=== PATIENT | female | born 1970 | race Caucasian/White ===

== ENCOUNTER 2022-01-27 07:36 | Emergency (ER) | payer OTHER ==
[2022-01-27 07:43] VITALS: RESP 18
[2022-01-27] MEDS ORDERED: SODIUM CHLORIDE 0.9% 500 ML 500 ML IV ONE (08:00)
[2022-01-27] MEDS ORDERED: MORPHINE SULFATE 4 MG/ML SYRINGE IVP STA (08:02)
[2022-01-27] MEDS ORDERED: ORPHENADRINE 30 MG/ML 2 ML VIAL IVP STA (08:03)
[2022-01-27] MEDS ORDERED: ONDANSETRON 4 MG/2 ML VIAL IVP STA (08:04)
--- NOTE | 2022-01-27 08:24 | ED ---
Back Pain HPI - General Chief Complaint: Back Pain/Injury Stated Complaint: Back pain Time Seen by Provider: 01/27/22 07:38 Source: patient Mode of arrival: ambulatory Limitations: no limitations - History of Present Illness Initial Comments: Patient is a 51-year-old female with PMH of asthma and hypertension presenting with back pain. Pain has been going on for 2-3 days, located in the left lumbar area, and feels like a pulling sensation. It occurred after she was reaching and hyper-extending. Pain is worse when changing position from sitting to standing. She has been using heat at home and tried one of her son's muscle relaxers last night which helped alleviate the pain enough for her to sleep. Denies chest pain, shortness of breath, palpitations, dysuria, hematuria, abdominal pain, fever, chills, nausea, vomiting. MD Complaint: back pain - Related Data Previous Rx's Medication Instructions Recorded Cyclobenzaprine HCl 10 mg PO TID PRN #20 tab 01/27/22 Allergies Allergy/AdvReac Type Severity Reaction Status Date / Time cheese Allergy Unknown Verified 01/27/22 07:44 melon Allergy Unknown Verified 01/27/22 07:44 shellfish derived [Shrimp] Allergy Unknown Verified 01/27/22 07:44 tree nut Allergy Unknown Verified 01/27/22 07:44 wheat Allergy Unknown Verified 01/27/22 07:44 Review of Systems ROS Statement: Those systems with pertinent positive or pertinent negative responses have been documented in the HPI. ROS Other: All systems not noted in ROS Statement are negative. Past Medical History Past Medical History: Asthma, Hypertension History of Any Multi-Drug Resistant Organisms: None Reported Past Surgical History: Section Past Psychological History: No Psychological Hx Reported Smoking Status: Never smoker Past Alcohol Use History: None Reported Past Drug Use History: None Reported General Exam Limitations: no limitations General appearance: alert, in no apparent distress Head exam: Present: atraumatic, normocephalic, normal inspection Eye exam: Present: normal appearance, PERRL, EOMI. Absent: scleral icterus Neck exam: Present: normal inspection Cardiovascular Exam: Present: normal rhythm, tachycardia, normal heart sounds. Absent: systolic murmur, diastolic murmur, rubs, gallop, clicks GI/Abdominal exam: Present: soft. Absent: tenderness Extremities exam: Present: normal inspection, full ROM. Absent: tenderness Back exam: Present: normal inspection, full ROM (pain with ROM), muscle spasm. Absent: CVA tenderness (R), CVA tenderness (L) Expanded Back exam: Absent: saddle anesthesia Neurological exam: Present: alert, oriented X3, CN II-XII intact Psychiatric exam: Present: normal affect, normal mood Skin exam: Present: warm, dry, intact, normal color. Absent: rash Course Vital Signs 01/27/22 01/27/22 01/27/22 07:38 08:15 08:43 Temperature 97.9 F Pulse Rate 128 H 118 H 112 H Respiratory 18 18 Rate Blood Pressure 168/107 176/98 O2 Sat by Pulse 96 98 Oximetry - Reevaluation(s) Reevaluation #1: She reports improvement in pain. 01/27/22 10:00 Medical Decision Making - Medical Decision Making Patient is a 51-year-old female with a PMH of asthma and hypertension presenting with left lower back pain. Pain started a few days ago after she strained to hard when reaching for something. At presentation heart rate was 128 she was slightly hypertensive. Pain is provoked with range of motion. No saddle paresthesia, loss of bowel or bladder control, leg weakness or numbness. While presentation is likely consistent with mechanical back pain - nephrolithiasis, intraabdominal infection, ACS were certainly within the differential. EKG was remarkable for tachycardia, otherwise normal and evaluated by Dr. Quintanilla. Lab work was negative. X-ray of lumbar spine and one view chest x-ray were negative. Presentation consistent with mechanical back pain and lumbar strain. Advised follow-up with a PCP in one to 3 days, provided her with 2 referrals as options. Educated on untreated hypertension. Prescribed cyclobenzaprine 10 mg up to 3 times a day as needed for back pain, may cause drowsiness do not take before driving or operating heavy machinery. Apply heat as needed. Report back to ER with any worsening symptoms or new onset alarming symptoms such as chest pain, shortness of breath, abdominal pain, fever, chills, saddle paresthesia, loss of bowel or bladder control, leg numbness or weakness. Answered all questions. Patient conveyed verbal understanding and agreed to the plan. Dr. Vazquez was the attending - Lab Data Result diagrams: 01/27/22 08:25 01/27/22 09:00 Lab Results 01/27/22 01/27/22 01/27/22 Range/Units 08:25 08:25 09:00 WBC 12.0 H (3.8-10.6) k/uL RBC 4.91 (3.80-5.40) m/uL Hgb 14.7 (11.4-16.0) gm/dL Hct 45.1 (34.0-46.0) % MCV 92.0 (80.0-100.0) fL MCH 29.9 (25.0-35.0) pg MCHC 32.5 (31.0-37.0) g/dL RDW 14.1 (11.5-15.5) % Plt Count 350 (150-450) k/uL MPV 8.0 Neutrophils % 80 % Lymphocytes % 14 % Monocytes % 4 % Eosinophils % 1 % Basophils % 1 % Neutrophils # 9.5 H (1.3-7.7) k/uL Lymphocytes # 1.7 (1.0-4.8) k/uL Monocytes # 0.4 (0-1.0) k/uL Eosinophils # 0.1 (0-0.7) k/uL Basophils # 0.1 (0-0.2) k/uL ESR Cancelled Sodium 139 (137-145) mmol/L Potassium 4.1 (3.5-5.1) mmol/L Chloride 105 (98-107) mmol/L Carbon Dioxide 22 (22-30) mmol/L Anion Gap 12 mmol/L BUN 10 (7-17) mg/dL Creatinine 0.71 (0.52-1.04) mg/dL Est GFR (CKD-EPI)AfAm >90 (>60 ml/min/1.73 sqM) Est GFR (CKD-EPI)NonAf >90 (>60 ml/min/1.73 sqM) Glucose 101 H (74-99) mg/dL Plasma Lactic Acid Andriy (0.7-2.0) mmol/L Calcium 9.2 (8.4-10.2) mg/dL Total Bilirubin 1.1 (0.2-1.3) mg/dL AST 33 (14-36) U/L ALT 27 (4-34) U/L Alkaline Phosphatase 158 H (38-126) U/L Troponin I (0.000-0.034) ng/mL C-Reactive Protein 0.7 (<1.0) mg/dL Total Protein 8.3 H (6.3-8.2) g/dL Albumin 4.4 (3.5-5.0) g/dL Urine Color Light Yellow Urine Appearance Cloudy H (Clear) Urine pH 6.5 (5.0-8.0) Ur Specific [place] 1.005 (1.001-1.035) Urine Protein Negative (Negative) Urine Glucose (UA) Negative (Negative) Urine Ketones Negative (Negative) Urine Blood Small H (Negative) Urine Nitrite Negative (Negative) Urine Bilirubin Negative (Negative) Urine Urobilinogen <2.0 (<2.0) mg/dL Ur Leukocyte Esterase Negative (Negative) Urine RBC 4 (0-5) /hpf Urine WBC 8 H (0-5) /hpf Ur Squamous Epith Cells 7 H (0-4) /hpf Urine Bacteria Many H (None) /hpf Urine Mucus Rare H (None) /hpf 01/27/22 01/27/22 01/27/22 Range/Units 09:00 09:00 09:00 WBC (3.8-10.6) k/uL RBC (3.80-5.40) m/uL Hgb (11.4-16.0) gm/dL Hct (34.0-46.0) % MCV (80.0-100.0) fL MCH (25.0-35.0) pg MCHC (31.0-37.0) g/dL RDW (11.5-15.5) % Plt Count (150-450) k/uL MPV Neutrophils % % Lymphocytes % % Monocytes % % Eosinophils % % Basophils % % Neutrophils # (1.3-7.7) k/uL Lymphocytes # (1.0-4.8) k/uL Monocytes # (0-1.0) k/uL Eosinophils # (0-0.7) k/uL Basophils # (0-0.2) k/uL ESR 28 H Sodium (137-145) mmol/L Potassium (3.5-5.1) mmol/L Chloride (98-107) mmol/L Carbon Dioxide (22-30) mmol/L Anion Gap mmol/L BUN (7-17) mg/dL Creatinine (0.52-1.04) mg/dL Est GFR (CKD-EPI)AfAm (>60 ml/min/1.73 sqM) Est GFR (CKD-EPI)NonAf (>60 ml/min/1.73 sqM) Glucose (74-99) mg/dL Plasma Lactic Acid Andriy 1.7 (0.7-2.0) mmol/L Calcium (8.4-10.2) mg/dL Total Bilirubin (0.2-1.3) mg/dL AST (14-36) U/L ALT (4-34) U/L Alkaline Phosphatase (38-126) U/L Troponin I <0.012 (0.000-0.034) ng/mL C-Reactive Protein (<1.0) mg/dL Total Protein (6.3-8.2) g/dL Albumin (3.5-5.0) g/dL Urine Color Urine Appearance (Clear) Urine pH (5.0-8.0) Ur Specific [place] (1.001-1.035) Urine Protein (Negative) Urine Glucose (UA) (Negative) Urine Ketones (Negative) Urine Blood (Negative) Urine Nitrite (Negative) Urine Bilirubin (Negative) Urine Urobilinogen (<2.0) mg/dL Ur Leukocyte Esterase (Negative) Urine RBC (0-5) /hpf Urine WBC (0-5) /hpf Ur Squamous Epith Cells (0-4) /hpf Urine Bacteria (None) /hpf Urine Mucus (None) /hpf - EKG Data EKG shows normal: axis, intervals Rate: tachycardia EKG Comments: Interpreted by Dr. Vazquez When compared to previous EKG there are: previous EKG unavailable - Radiology Data Radiology results: report reviewed Chest x-ray: No acute processes Lumbar x-ray: No acute fracture or dislocation. Disposition Clinical Impression: Mechanical back pain, Strain of lumbar region Disposition: HOME SELF-CARE Condition: Good Instructions (If sedation given, give patient instructions): Acute Low Back Pain (ED) Additional Instructions: Follow-up with one of the primary care physicians provided in the next 1-3 days. Report back to ER with any worsening symptoms or new onset alarming symptoms such as leg weakness or numbness, loss of bowel or bladder control, numbness or tingling in the genital region, chest pain, shortness of breath Prescriptions: Cyclobenzaprine HCl 10 mg PO TID PRN #20 tab PRN Reason: Spasms Is patient prescribed a controlled substance at d/c from ED?: No Referrals: Que Hatfield MD [REFERRING] - 1-2 days Vinh Mensah MD [REFERRING] - 1-2 days Time of Disposition: 10:04
[2022-01-27] MEDS ORDERED: KETOROLAC 15 MG/ML 1 ML VIAL IVP STA (08:25)
[2022-01-27 08:40] LABS: Basophils # (A) 0.1 k/uL (0-0.2); Basophils % (A) 1 %; Eosinophils # (A) 0.1 k/uL (0-0.7); Eosinophils % (A) 1 %; HCT 45.1 % (34.0-46.0); HGB 14.7 gm/dL (11.4-16.0); Lymphocytes # (A) 1.7 k/uL (1.0-4.8); Lymphocytes % (A) 14 %; MCH 29.9 pg (25.0-35.0); MCHC 32.5 g/dL (31.0-37.0); Monocytes # (A) 0.4 k/uL (0-1.0); Monocytes % (A) 4 %; Neutrophils # (A) 9.5 k/uL (1.3-7.7); Neutrophils % (A) 80 %; Platelet Count 350 k/uL (150-450); RBC 4.91 m/uL (3.80-5.40); RDW 14.1 % (11.5-15.5)
--- NOTE | 2022-01-27 08:51 | XR ---
EXAMINATION TYPE: XR chest 1V DATE OF EXAM: 01/27/2022 COMPARISON: NONE HISTORY: Back pain TECHNIQUE: Single frontal view of the chest is obtained. FINDINGS: There is no focal air space opacity, pleural effusion, or pneumothorax seen. The cardiac silhouette size is within normal limits. There is elevation of right hemidiaphragm, eventration. The osseous structures are intact. IMPRESSION: No acute process.
--- NOTE | 2022-01-27 08:53 | XR ---
Lumbar spine HISTORY: Back pain 3 views of the lumbar spine Lumbar vertebral bodies show preserved height, alignment, and bone mineralization. Spina bifida occul ta is present at what is believed to be S1, possible transitional vertebral body. There is multilevel spondylosis. Some loss of disc height at intervertebral level L2-3. Sclerosis is present in the post erior elements of the lower lumbar spine. IMPRESSION: Degenerative disc disease and facet arthropathy.
[2022-01-27 09:19] LABS: ALT 27 U/L (4-34); AST 33 U/L (14-36); African American GFR (CKD) >90 (>60 ml/min/1.73 sqM); Albumin 4.4 g/dL (3.5-5.0); Alkaline Phosphatase 158 U/L (38-126); Anion Gap 12 mmol/L; Blood Urea Nitrogen 10 mg/dL (7-17); C Reactive Protein 0.7 mg/dL (<1.0); Calcium 9.2 mg/dL (8.4-10.2); Carbon Dioxide 22 mmol/L (22-30); Chloride 105 mmol/L (98-107); Glucose 101 mg/dL (74-99); Non-African American GFR(CKD) >90 (>60 ml/min/1.73 sqM); Potassium 4.1 mmol/L (3.5-5.1); Sodium 139 mmol/L (137-145); Total Bilirubin 1.1 mg/dL (0.2-1.3); Total Protein 8.3 g/dL (6.3-8.2)
[2022-01-27 09:53] LABS: Appearance,Urine Cloudy (Clear); Bacteria,Urine Many /hpf; Bilirubin,Urine Negative (Negative); Blood,Urine Small (Negative); Color,Urine Light Yellow; Glucose,Urine (UA) Negative (Negative); Ketones,Urine Negative (Negative); Leukocyte Esterase,Urine Negative (Negative); Mucus,Urine Rare /hpf; Nitrite,Urine Negative (Negative); PH, Urine 6.5 (5.0-8.0); Protein,Urine Negative (Negative); RBC,Urine 4 /hpf (0-5); Specific Gravity,Urine 1.005 (1.001-1.035); Squamous Epithelial Cell,Urine 7 /hpf (0-4); Urobilinogen,Urine <2.0 mg/dL (<2.0); WBC,Urine 8 /hpf (0-5)
[2022-01-27 10:26] VITALS: BP 177/93; PULSE 108; TEMP 97.8
== END 2022-01-27 10:24 | disposition home or self-care (01) ==
LOC: EC 07:36
DX: S39.012A Strain of muscle, fascia and tendon of lower back, initial encounter (principal); I10 Essential (primary) hypertension; J45.909 Unspecified asthma, uncomplicated; Z79.899 Other long term (current) drug therapy; X50.1XXA Overexertion from prolonged static or awkward postures, initial encounter
CPT/HCPCS: 36415; 93005; 80053; 85652; 83605; 84484; 85025; 86140; 81001; 72100; 71045; 99284; 96374; 96375 ×2; J2360; J2405; J1885

== ENCOUNTER 2022-03-27 22:19 | Emergency (ER) | payer OTHER ==
[2022-03-27 23:21] VITALS: RESP 18
[2022-03-27] MEDS ORDERED: ACETAMINOPHEN TAB 325 MG TAB PO STA (23:26)
[2022-03-28 02:20] LABS: Basophils # (A) 0.1 k/uL (0-0.2); Basophils % (A) 1 %; Eosinophils # (A) 0.2 k/uL (0-0.7); Eosinophils % (A) 2 %; HCT 44.4 % (34.0-46.0); HGB 14.1 gm/dL (11.4-16.0); Lymphocytes # (A) 1.4 k/uL (1.0-4.8); Lymphocytes % (A) 9 %; MCHC 31.7 g/dL (31.0-37.0); MCV 91.7 fL (80.0-100.0); Mean Platelet Volume 7.9; Monocytes # (A) 0.6 k/uL (0-1.0); Monocytes % (A) 4 %; Neutrophils # (A) 13.9 k/uL (1.3-7.7); Neutrophils % (A) 85 %; Platelet Count 389 k/uL (150-450); RBC 4.84 m/uL (3.80-5.40); WBC 16.4 k/uL (3.8-10.6)
--- NOTE | 2022-03-28 02:23 | XR ---
EXAMINATION TYPE: XR chest 2V DATE OF EXAM: 03/28/2022 COMPARISON: 01/27/2022 HISTORY: Cough TECHNIQUE: 2 views FINDINGS: Heart and mediastinum are normal. Lungs are clear. Diaphragm is normal. Bony thorax is inta ct. IMPRESSION: Normal chest. No change.
[2022-03-28 02:27] LABS: Prothrombin Time 10.9 sec (9.0-12.0)
[2022-03-28 02:33] VITALS: TEMP 99.8
[2022-03-28 02:46] LABS: ALT 19 U/L (4-34); African American GFR (CKD) >90 (>60 ml/min/1.73 sqM); Albumin 4.5 g/dL (3.5-5.0); Anion Gap 9 mmol/L; Blood Urea Nitrogen 13 mg/dL (7-17); Calcium 9.9 mg/dL (8.4-10.2); Carbon Dioxide 25 mmol/L (22-30); Chloride 103 mmol/L (98-107); Glucose 118 mg/dL (74-99); Non-African American GFR(CKD) >90 (>60 ml/min/1.73 sqM); Sodium 137 mmol/L (137-145); Total Bilirubin 1.3 mg/dL (0.2-1.3); Total Protein 8.5 g/dL (6.3-8.2)
[2022-03-28 02:57] LABS: Potassium 4.3 mmol/L (3.5-5.1)
[2022-03-28 02:58] LABS: AST 29 U/L (14-36); Alkaline Phosphatase 154 U/L (38-126)
--- NOTE | 2022-03-28 03:15 | ED ---
General Adult HPI - General Chief complaint: ENT Stated complaint: ENT Time Seen by Provider: 03/28/22 02:09 Source: patient Mode of arrival: ambulatory Limitations: no limitations - History of Present Illness Initial comments: Melisa is a 51yo F with PMH of htn who is no longer taking any medications. Patient presents to the emergency department today via private vehicle for evaluation of 2 days of sore throat, nasal congestion and pressure in the ears. Patient states she is really anxious she could've COVID-19. She's had no nausea or vomiting. She has no chest pain, palpitations or shortness of breath. - Related Data Previous Rx's Medication Instructions Recorded Cyclobenzaprine HCl 10 mg PO TID PRN #20 tab 01/27/22 Lisinopril [Zestril] 10 mg PO DAILY #30 tab 03/28/22 Allergies Allergy/AdvReac Type Severity Reaction Status Date / Time cheese Allergy Unknown Verified 03/27/22 23:21 melon Allergy Unknown Verified 03/27/22 23:21 shellfish derived [Shrimp] Allergy Unknown Verified 03/27/22 23:21 tree nut Allergy Unknown Verified 03/27/22 23:21 wheat Allergy Unknown Verified 03/27/22 23:21 Review of Systems ROS Statement: Those systems with pertinent positive or pertinent negative responses have been documented in the HPI. ROS Other: All systems not noted in ROS Statement are negative. Past Medical History Past Medical History: Asthma, Hypertension History of Any Multi-Drug Resistant Organisms: None Reported Past Surgical History: Section Past Psychological History: No Psychological Hx Reported Smoking Status: Never smoker Past Alcohol Use History: None Reported Past Drug Use History: None Reported General Exam - General Exam Comments Initial Comments: Physical Exam GENERAL: Patient is well-developed and well-nourished. Patient is nontoxic and well- hydrated and is in no distress. HENT: Normocephalic, Atraumatic. TMs normal bilaterally [place] moist oral pharynx with no erythema or exudates EYES: PERRL, EOMI PULMONARY: Unlabored respirations. No audible rales rhonchi or wheezing was noted. CARDIOVASCULAR: There is a regular rate and rhythm without any murmurs gallops or rubs. ABDOMEN: Soft and nontender with normal bowel sounds. SKIN: Skin is clear with no lesions or rashes and otherwise unremarkable. : Deferred NEUROLOGIC: Patient is alert and oriented x3. Moving all extremities spontaneously MUSCULOSKELETAL: Normal extremities with adequate strength and full range of motion. No lower extremity swelling or edema. No calf tenderness. PSYCHIATRIC: Normal psychiatric evaluation. Limitations: no limitations Course Vital Signs 03/27/22 03/28/22 03/28/22 23:15 01:19 02:30 Temperature 100.4 F H 98.5 F 99.8 F H Pulse Rate 130 H 134 H 121 H Respiratory 18 18 18 Rate Blood Pressure 193/100 199/103 196/101 O2 Sat by Pulse 98 96 Oximetry 03/28/22 03/28/22 03/28/22 04:02 04:18 05:00 Temperature Pulse Rate 116 H 98 99 Respiratory 18 18 18 Rate Blood Pressure 170/105 183/98 192/102 O2 Sat by Pulse 96 94 L 95 Oximetry EKG Findings - EKG Comments: EKG Findings:: EKG was obtained due to tachycardia, EKG was obtained at 1:50 AM, rate is 126 rhythm is sinus tach, normal axis, normal intervals, CA 157, QRS 83, QTC [address] elevations or depressions or evidence of ischemia or infarction. Medical Decision Making - Medical Decision Making pt was seen and evaluated, labs and swabs were obtained Patient was tachycardic and hypertensive and febrile, swabs were negative for COVID her fluid and patient was relieved. She was treated with a single dose of metoprolol she had brief improvement in her blood pressure and heart rate. She received IV fluids her heart rate improved significantly. Patient then called for me to come back to her room she stated that she did not want to stay for any further medications that she is asymptomatic as far as her hypertension is concerning. I did prescribe her lisinopril and advised her that she needs to see it, I did discuss with the patient that she is at a high risk of having a stroke or PA due to her uncontrolled hypertension. Patient expressed understanding this was comfortable plan for discharge home, outpatient follow-up with primary care and lisinopril for hypertension. - Lab Data Result diagrams: 03/28/22 02:01 03/28/22 02:01 Lab Results 03/27/22 03/27/22 03/28/22 Range/Units 23:27 23:27 02:01 WBC 16.4 H (3.8-10.6) k/uL RBC 4.84 (3.80-5.40) m/uL Hgb 14.1 (11.4-16.0) gm/dL Hct 44.4 (34.0-46.0) % MCV 91.7 (80.0-100.0) fL MCH 29.0 (25.0-35.0) pg MCHC 31.7 (31.0-37.0) g/dL RDW 14.0 (11.5-15.5) % Plt Count 389 (150-450) k/uL MPV 7.9 Neutrophils % 85 % Lymphocytes % 9 % Monocytes % 4 % Eosinophils % 2 % Basophils % 1 % Neutrophils # 13.9 H (1.3-7.7) k/uL Lymphocytes # 1.4 (1.0-4.8) k/uL Monocytes # 0.6 (0-1.0) k/uL Eosinophils # 0.2 (0-0.7) k/uL Basophils # 0.1 (0-0.2) k/uL PT (9.0-12.0) sec INR (<1.2) Sodium (137-145) mmol/L Potassium (3.5-5.1) mmol/L Chloride (98-107) mmol/L Carbon Dioxide (22-30) mmol/L Anion Gap mmol/L BUN (7-17) mg/dL Creatinine (0.52-1.04) mg/dL Est GFR (CKD-EPI)AfAm (>60 ml/min/1.73 sqM) Est GFR (CKD-EPI)NonAf (>60 ml/min/1.73 sqM) Glucose (74-99) mg/dL Calcium (8.4-10.2) mg/dL Total Bilirubin (0.2-1.3) mg/dL AST (14-36) U/L ALT (4-34) U/L Alkaline Phosphatase (38-126) U/L Troponin I (0.000-0.034) ng/mL Total Protein (6.3-8.2) g/dL Albumin (3.5-5.0) g/dL Coronavirus (PCR) Not Detected (Not Detectd) Influenza Type A RNA Not Detected (Not Detectd) Influenza Type B (PCR) Not Detected (Not Detectd) 04/28/22 04/28/22 04/28/22 Range/Units 02:01 02:01 02:01 WBC (3.8-10.6) k/uL RBC (3.80-5.40) m/uL Hgb (11.4-16.0) gm/dL Hct (34.0-46.0) % MCV (80.0-100.0) fL MCH (25.0-35.0) pg MCHC (31.0-37.0) g/dL RDW (11.5-15.5) % Plt Count (150-450) k/uL MPV Neutrophils % % Lymphocytes % % Monocytes % % Eosinophils % % Basophils % % Neutrophils # (1.3-7.7) k/uL Lymphocytes # (1.0-4.8) k/uL Monocytes # (0-1.0) k/uL Eosinophils # (0-0.7) k/uL Basophils # (0-0.2) k/uL PT 10.9 (9.0-12.0) sec INR 1.0 (<1.2) Sodium 137 (137-145) mmol/L Potassium 4.3 (3.5-5.1) mmol/L Chloride 103 (98-107) mmol/L Carbon Dioxide 25 (22-30) mmol/L Anion Gap 9 mmol/L BUN 13 (7-17) mg/dL Creatinine 0.65 (0.52-1.04) mg/dL Est GFR (CKD-EPI)AfAm >90 (>60 ml/min/1.73 sqM) Est GFR (CKD-EPI)NonAf >90 (>60 ml/min/1.73 sqM) Glucose 118 H (74-99) mg/dL Calcium 9.9 (8.4-10.2) mg/dL Total Bilirubin 1.3 (0.2-1.3) mg/dL AST 29 (14-36) U/L ALT 19 (4-34) U/L Alkaline Phosphatase 154 H (38-126) U/L Troponin I <0.012 (0.000-0.034) ng/mL Total Protein 8.5 H (6.3-8.2) g/dL Albumin 4.5 (3.5-5.0) g/dL Coronavirus (PCR) (Not Detectd) Influenza Type A RNA (Not Detectd) Influenza Type B (PCR) (Not Detectd) Disposition Clinical Impression: Viral URI, Hypertension Disposition: HOME SELF-CARE Condition: Stable Additional Instructions: begin taking lisinopril, follow with primary care doctor for further management of high blood pressure Prescriptions: Lisinopril [Zestril] 10 mg PO DAILY #30 tab Is patient prescribed a controlled substance at d/c from ED?: No Referrals: None,Stated [Primary Care Provider] - 1-2 days
[2022-03-28] MEDS ORDERED: SODIUM CHLORIDE 0.9% 1,000 ML IV ONE (03:16)
[2022-03-28] MEDS ORDERED: METOPROLOL TARTRATE 5 MG/5 ML VIAL IVP STA (03:16)
[2022-03-28 05:08] VITALS: BP 192/102; PULSE 99
== END 2022-03-28 05:29 | disposition home or self-care (01) ==
LOC: EC 22:19
DX: J06.9 Acute upper respiratory infection, unspecified (principal); I10 Essential (primary) hypertension; J45.909 Unspecified asthma, uncomplicated; Z20.822 Contact with and (suspected) exposure to COVID-19
CPT/HCPCS: 36415; 71046; 80053; 84484; 85025; 85610; 87502; 87635; 93005; 96361; 96374; 99284

== ENCOUNTER 2024-10-22 17:35 | Emergency (ER) | payer OTHER ==
[2024-10-22 18:22] VITALS: TEMP 98.6
--- NOTE | 2024-10-22 20:28 | XR ---
EXAMINATION TYPE: XR chest 2V DATE OF EXAM: 10/22/2024 8:23 PM COMPARISON: Previous chest radiograph 03/28/2022. CLINICAL INDICATION: Female, 54 years old with history of cough; H TECHNIQUE: XR chest 2V Frontal and lateral views of the chest. FINDINGS: Cardiac silhouette within normal limits for size. No focal consolidation. No pleural effusion. No pneumothorax. No acute osseous abnormality. IMPRESSION: No acute cardiopulmonary disease/process. [facility], , 10/22/2024 8:25 PM
[2024-10-22] MEDS: predniSONE 20 MG TAB PO STA (22:09)
--- NOTE | 2024-10-22 22:10 | ED ---
General Adult HPI - General Chief complaint: Upper Respiratory Infection Stated complaint: congestion Time Seen by Provider: 10/22/24 19:03 Source: patient Mode of arrival: ambulatory - History of Present Illness Initial comments: 54-year-old female presents emergency department reporting upper respiratory symptoms. States that today she began having nasal congestion, sore throat, ear pain and cough. Denies any fevers. No sick contacts with similar symptoms. Does admit to a history of asthma. Has inhalers at home that she uses only when needed. Patient has never been hospitalized for her breathing. Does admit to some wheezing. She took qqyc-fbs-[id number] cough and cold medicine without any improvement in her symptoms. Denies any chest pain. No history of cardiac disease. Cough is nonproductive. Denies any additional symptoms to include nausea, vomiting, diarrhea, black or bloody stools. No other alleviating, precipitating modifying factors - Related Data Previous Rx's Medication Instructions Recorded Cyclobenzaprine HCl 10 mg PO TID PRN #20 tab 01/27/22 lisinopriL [Zestril] 10 mg PO DAILY #30 tab 03/28/22 Fluticasone/Umeclidin/Vilanter 1 puff INHALATION BID #1 each 10/22/24 [Trelegy Ellipta 200-62.5-25] Levalbuterol Nebulized [Xopenex 1.25 mg INHALATION TID PRN #90 ml 10/22/24 Nebulized] predniSONE [Deltasone] 20 mg PO BID #10 tab 10/22/24 Allergies Allergy/AdvReac Type Severity Reaction Status Date / Time cheese Allergy Unknown Verified 10/22/24 18:21 melon Allergy Unknown Verified 10/22/24 18:21 shellfish derived [Shrimp] Allergy Unknown Verified 10/22/24 18:21 tree nut Allergy Unknown Verified 10/22/24 18:21 wheat Allergy Unknown Verified 10/22/24 18:21 Review of Systems ROS Statement: Those systems with pertinent positive or pertinent negative responses have been documented in the HPI. ROS Other: All systems not noted in ROS Statement are negative. Past Medical History Past Medical History: Asthma, Hypertension History of Any Multi-Drug Resistant Organisms: None Reported Past Surgical History: Section Past Psychological History: No Psychological Hx Reported Smoking Status: Never smoker Past Alcohol Use History: None Reported Past Drug Use History: None Reported General Exam General appearance: alert, in no apparent distress Head exam: Present: atraumatic, normocephalic, normal inspection Eye exam: Present: normal appearance, PERRL, EOMI. Absent: scleral icterus, conjunctival injection, periorbital swelling ENT exam: Present: normal exam, mucous membranes moist Neck exam: Present: normal inspection. Absent: tenderness, meningismus, lymphadenopathy Respiratory exam: Present: normal lung sounds bilaterally. Absent: respiratory distress, wheezes, rales, rhonchi, stridor Cardiovascular Exam: Present: normal rhythm, tachycardia, normal heart sounds. Absent: systolic murmur, diastolic murmur, rubs, gallop, clicks GI/Abdominal exam: Present: soft, normal bowel sounds. Absent: distended, tenderness, guarding, rebound, rigid Extremities exam: Present: normal inspection, full ROM, normal capillary refill. Absent: tenderness, pedal edema, joint swelling, calf tenderness Back exam: Present: normal inspection Neurological exam: Present: alert, oriented X3, CN II-XII intact Psychiatric exam: Present: normal affect, normal mood Skin exam: Present: warm, dry, intact, normal color. Absent: rash Course Vital Signs 10/22/24 10/22/24 10/22/24 18:17 19:06 22:15 Temperature 98.6 F Pulse Rate 125 H 115 H Respiratory 18 24 18 Rate Blood Pressure 176/115 170/110 O2 Sat by Pulse 96 97 Oximetry 10/22/24 22:17 Temperature Pulse Rate 110 H Respiratory 18 Rate Blood Pressure 170/110 O2 Sat by Pulse 98 Oximetry Medical Decision Making - Medical Decision Making Was pt. sent in by a medical professional or institution ([facility]AM[facility] Conn, SENIOR ARCHITECT, urgent care, hospital, or assisted...) When possible be specific @ -No Did you speak to anyone other than the patient for history (EMS, parent, family, police, friend...)? What history was obtained from this source @ -No Did you review nursing and triage notes (agree or disagree)? Why? @ -I reviewed and agree with nursing and triage notes Were old charts reviewed (outside hosp., previous admission, EMS record, old EKG, old radiological studies, urgent care reports/EKG's, assisted records)? Report findings @ -No old charts were reviewed Differential Diagnosis (chest pain, altered mental status, abdominal pain women, abdominal pain men, vaginal bleeding, weakness, fever, dyspnea, syncope, headache, dizziness, GI bleed, back pain, seizure, CVA, palpatations, mental health, musculoskeletal)? @ -Asthma exacerbation, COPD, COVID, influenza, RSV EKG interpreted by me (3pts min.). @ -Not done X-rays interpreted by me (1pt min.). @ -Yes and demonstrates no acute process CT interpreted by me (1pt min.). @ -None done U/S interpreted by me (1pt. min.). @ -None done What testing was considered but not performed or refused? (CT, X-rays, U/S, labs)? Why? @ -None What meds were considered but not given or refused? Why? @ -Albuterol treatment was considered however patient states that it raises her heart rate and she must use Xopenex instead. Xopenex not available on formulary Did you discuss the management of the patient with other professionals (professionals i.e. , PA, SENIOR ARCHITECT, lab, RT, psych nurse, 7th grade social studies teacher, celery tier, teacher, communications officer, transplant case manager)? Give summary @ -No Was smoking cessation discussed for >3mins.? @ -No Was critical care preformed (if so, how long)? @ -No Were there social determinants of health that impacted care today? How? (Homelessness, low income, unemployed, alcoholism, drug addiction, transportation, low edu. Level, literacy, decrease access to med. care, [facility], rehab)? @ -No Was there de-escalation of care discussed even if they declined (Discuss DNR or withdrawal of care, Hospice)? DNR status @ -No What co-morbidities impacted this encounter? (DM, HTN, Smoking, COPD, CAD, Cancer, CVA, ARF, Chemo, Hep., AIDS, mental health diagnosis, sleep apnea, morbid obesity)? @ -Asthma Was patient admitted / discharged? Hospital course, mention meds given and route, prescriptions, significant lab abnormalities, going to OR and other pertinent info. @ -Upon arrival patient seen and evaluated in hallway 22. Thorough history and physical exam was performed. Patient was swabbed for influenza, COVID, RSV and strep. Chest x-ray was performed. Results are discussed with the patient. Patient will be discharged home. She was given 60 mg of prednisone. I will prescribe Xopenex inhaler and refill her trilogy inhaler. Patient will be placed on steroids for the next 5 days. Instructed follow-up with her primary care doctor in 2 to 4 days. Return for any new or worsening symptoms. Patient was agreeable plan discharged home in stable condition Undiagnosed new problem with uncertain prognosis? @ -No Drug Therapy requiring intensive monitoring for toxicity (Heparin, Nitro, Insulin, Cardizem)? @ -No Were any procedures done? @ -No Diagnosis/symptom? @ -Acute cough, acute bronchitis Acute, or Chronic, or Acute on Chronic? @ -Acute Uncomplicated (without systemic symptoms) or Complicated (systemic symptoms)? @ -Complicated Side effects of treatment? @ -No Exacerbation, Progression, or Severe Exacerbation? @ -No Poses a threat to life or bodily function? How? (Chest pain, USA, [place], pneumonia, PE, COPD, DKA, ARF, appy, cholecystitis, CVA, Diverticulitis, Homicidal, Suicidal, threat to staff... and all critical care pts) @ -No - Lab Data Lab Results 10/22/24 10/22/24 Range/Units 20:37 20:37 Influenza Type A (PCR) Not Detected (Not Detectd) Influenza Type B (PCR) Not Detected (Not Detectd) RSV (PCR) Not Detected (Not Detectd) SARS-CoV-2 (PCR) Not Detected (Not Detectd) Group A Strep (PCR) NOT DETECTED (Not Detectd) Disposition Clinical Impression: Bronchitis, Cough Disposition: HOME SELF-CARE Condition: Stable Instructions (If sedation given, give patient instructions): Acute Bronchitis (ED) Additional Instructions: Please start the steroids tomorrow. Use the inhalers as directed. Follow-up with your doctor to ensure you are getting better. Return for any new or worsening symptoms Prescriptions: predniSONE [Deltasone] 20 mg PO BID #10 tab Fluticasone/Umeclidin/Vilanter [Trelegy Ellipta 200-62.5-25] 1 puff INHALATION BID #1 each Levalbuterol Nebulized [Xopenex Nebulized] 1.25 mg INHALATION TID PRN #90 ml PRN Reason: Shortness Of Breath Is patient prescribed a controlled substance at d/c from ED?: No Referrals: Sarah Tapia, NPC [Primary Care Provider] - 1-2 days Time of Disposition: 22:10
[2024-10-22 22:16] VITALS: BP 170/110; RESP 18
[2024-10-22 22:18] VITALS: PULSE 110
== END 2024-10-22 22:26 | disposition home or self-care (01) ==
LOC: EC 17:35
DX: J40 Bronchitis, not specified as acute or chronic (principal); Z91.013 Allergy to seafood; Z91.018 Allergy to other foods
CPT/HCPCS: 87651; 87636; 71046; 99283; J7512

== ENCOUNTER 2024-11-10 12:38 | Inpatient (IN) | payer BC, OTHER ==
--- NOTE | 2024-11-10 13:46 | ED ---
SOB HPI - General Source: patient, RN notes reviewed Mode of arrival: wheelchair Limitations: no limitations <Patsy Obrien - Last Filed: 11/10/24 17:22> <Tiki Fofana - Last Filed: 11/10/24 19:04> - General Chief Complaint: Shortness of Breath Stated Complaint: KARTHIK Time Seen by Provider: 11/10/24 13:35 - History of Present Illness Initial Comments: This is a 54-year-old female who presents to the emergency department for shortness of breath. Patient has a history of asthma and states that it has been acting up on her for the last couple of days. She was diagnosed with bronchitis a few weeks ago and states that she just had clear sputum then. This has now turned to a yellowish color. She is using her Xopenex inhaler which is only mildly helpful. She is also using breathing treatments at home with only some improvement. States that the last time she felt like this she had pneumonia. (Patsy Obrien) - Related Data Home Medications Medication Instructions Recorded Confirmed Levalbuterol Nebulized [Xopenex 1.25 mg INHALATION RT-TID PRN 11/10/24 11/10/24 Nebulized] Allergies Allergy/AdvReac Type Severity Reaction Status Date / Time cashew nut Allergy Anaphylaxis Verified 11/10/24 16:21 cheese Allergy Unknown Verified 11/10/24 16:21 melon Allergy Anaphylaxis Verified 11/10/24 16:21 shellfish derived [Shrimp] Allergy Anaphylaxis Verified 11/10/24 16:21 tree nut Allergy Anaphylaxis Verified 11/10/24 16:21 wheat Allergy Anaphylaxis Verified 11/10/24 16:21 Review of Systems ROS Other: All systems not noted in ROS Statement are negative. <Patsy Obrien - Last Filed: 11/10/24 17:22> ROS Other: All systems not noted in ROS Statement are negative. <Tiki Fofana - Last Filed: 11/10/24 19:04> ROS Statement: Those systems with pertinent positive or pertinent negative responses have been documented in the HPI. Past Medical History Past Medical History: Asthma, Hypertension History of Any Multi-Drug Resistant Organisms: None Reported Past Surgical History: Section Past Psychological History: No Psychological Hx Reported Smoking Status: Never smoker Past Alcohol Use History: None Reported Past Drug Use History: None Reported <Patsy Obrien - Last Filed: 11/10/24 17:22> General Exam Limitations: no limitations General appearance: alert, in no apparent distress Head exam: Present: atraumatic, normocephalic, normal inspection Respiratory exam: Present: decreased breath sounds, prolonged expiratory Cardiovascular Exam: Present: normal rhythm, tachycardia Neurological exam: Present: alert, oriented X3, CN II-XII intact Psychiatric exam: Present: normal affect, normal mood Skin exam: Present: warm, dry, intact, normal color. Absent: rash <Patsy Obrien - Last Filed: 11/10/24 17:22> Course Vital Signs 11/10/24 11/10/24 12:47 16:45 Temperature 99.4 F 98.7 F Pulse Rate 138 H 138 H Respiratory 22 24 Rate Blood Pressure 158/110 174/105 O2 Sat by Pulse 92 L 95 Oximetry Medical Decision Making - Lab Data Result diagrams: 11/10/24 14:32 11/10/24 14:32 - Radiology Data Radiology results: report reviewed, image reviewed <Patsy Obrien - Last Filed: 11/10/24 17:22> - Lab Data Result diagrams: 11/10/24 14:32 11/10/24 14:32 <Tiki Fofana - Last Filed: 11/10/24 19:04> - Medical Decision Making This is a 54-year-old female who presents to the emergency department for shortness of breath. Was pt. sent in by a medical professional or institution? @ -No Did you speak to anyone other than the patient for history? @ -No Did you review nursing and triage notes? @ -Yes, and I agree, it is accurate with regards to the patient's symptoms. Were old charts reviewed? @ -No Differential Diagnosis? @ -Differential Dyspnea: Coronary syndrome, arrhythmia, tamponade, asthma, COPD, pulmonary embolism, pneumonia, pneumothorax, pulmonary effusion, anaphylaxis, diabetic ketoacidosis, flailed chest, pulmonary contusion, diaphragmatic rupture, anemia, ruben romuscular, this is not meant to be an all-inclusive list. EKG interpreted by me (3pts min.)? @ -EKG interpreted by me demonstrating the following: Sinus tachycardia. Ventr icular rate 133 bpm, LA interval 152 ms, QRS duration 80 ms, QTc 358 ms. X-rays interpreted by me (1pt min.)? @ -Chest x-ray obtained, my interpretation identifies no localized consolidations or infiltrates. CT interpreted by me (1pt min.)? @ -Pending U/S interpreted by me (1pt. min.)? @ -Not obtained What testing was considered but not performed? (CT, X-rays, U/S, labs)? Why? @ -None What meds were considered but not given? Why? @ -None Did you discuss the management of the patient with other professionals? @ -No Did you reconcile home meds? @ -No Was smoking cessation discussed for >3mins.? @ -No Was critical care preformed (if so, how long)? @ -No Were there social determinants of health that impacted care today? How? (Homelessness, low income, unemployed, alcoholism, drug addiction, transportation, low edu. Level, literacy, decrease access to med. care, halfway, rehab)? @ -No Was there de-escalation of care discussed even if they declined? (Discuss DNR or withdrawal of care, Hospice)? @ -No What co-morbidities impacted this encounter? (DM, HTN, Smoking, COPD, CAD, Cancer, CVA, Hep., AIDS, mental health diagnosis, sleep apnea, morbid obesity)? @ -Asthma, HTN Was patient admitted / discharged? @ -Lab work demonstrates leukocytosis with a white blood cell count of 11.9. D-dimer elevated at 0.88. COVID, influenza, and RSV testing negative. Chest x- ray reveals no acute process. Patient continued to be tachycardic with a heart rate in the 130s. She did feel somewhat anxious and was given a dose of Ativan to see if that would be of any benefit. She was also given IV fluids. CTA of the chest obtained to evaluate for any signs of a pulmonary embolus. Case signed out to Tiki Fofana PA-C, at shift completion pending CTA results. Undiagnosed new problem with uncertain prognosis? @ -None Drug Therapy requiring intensive monitoring for toxicity (Heparin, Nitro, Insulin, Cardizem)? @ -None Were any procedures done? @ -None (Patsy Obrien) Was pt. sent in by a medical professional or institution (, [facility], GROUP INSURANCE SPECIAL AGENT, urgent care, hospital, or retirement...) When possible be specific @ -No Did you speak to anyone other than the patient for history (EMS, parent, family, police, friend...)? What history was obtained from this source @ -No Did you review nursing and triage notes (agree or disagree)? Why? @ -I reviewed and agree with nursing and triage notes Were old charts reviewed (outside hosp., previous admission, EMS record, old EKG, old radiological studies, urgent care reports/EKG's, retirement records)? Report findings @ -No old charts were reviewed Differential Diagnosis (chest pain, altered mental status, abdominal pain women, abdominal pain men, vaginal bleeding, weakness, fever, dyspnea, syncope, headache, dizziness, GI bleed, back pain, seizure, CVA, palpatations, mental health, musculoskeletal)? @ -Differential Dyspnea: Coronary syndrome, arrhythmia, tamponade, asthma, COPD, pulmonary embolism, pneumonia, pneumothorax, pulmonary effusion, anaphylaxis, diabetic ketoacidosis, flailed chest, pulmonary contusion, diaphragmatic rupture, anemia, neuromuscular, this is not meant to be an all-inclusive list. EKG interpreted by me (3pts min.). @ -As above X-rays interpreted by me (1pt min.). @ -Chest x-ray reveals no acute process CT interpreted by me (1pt min.). @ -CT angio chest reveals small partial filling defects without complete obstruction suggestive for chronic pulmonary emboli, acute complete obstructed vessels for acute PE not clearly visualized U/S interpreted by me (1pt. min.). @ -None done What testing was considered but not performed or refused? (CT, X-rays, U/S, labs)? Why? @ -None What meds were considered but not given or refused? Why? @ -None Did you discuss the management of the patient with other professionals (professionals i.e. , PA, GROUP INSURANCE SPECIAL AGENT, lab, RT, psych nurse, perinatal social worker, steward/stewardess chief cargo vessel, teacher, county records management officer, case coordinator)? Give summary @ -I spoke with sound physicians for admission for pulmonary embolism Was smoking cessation discussed for >3mins.? @ -No Was critical care preformed (if so, how long)? @ -No Were there social determinants of health that impacted care today? How? (Homelessness, low income, unemployed, alcoholism, drug addiction, transportation, low edu. Level, literacy, decrease access to med. care, halfway, rehab)? @ -No Was there de-escalation of care discussed even if they declined (Discuss DNR or withdrawal of care, Hospice)? DNR status @ -No What co-morbidities impacted this encounter? (DM, HTN, Smoking, COPD, CAD, Cancer, CVA, ARF, Chemo, Hep., AIDS, mental health diagnosis, sleep apnea, morbid obesity)? @ -None Was patient admitted / discharged? Hospital course, mention meds given and route, prescriptions, significant lab abnormalities, going to OR and other pertinent info. @ -Admitted. This is a 54-year-old female presenting with shortness of breath x 2 days. Patient is tachycardic at 138 bpm, satting 95% on 2 L of oxygen. D- dimer was noted to be elevated. Case was signed out to me pending CT angio chest. CT angio chest was performed which revealed small partial filling defects without complete obstruction suggestive for chronic pulmonary emboli, acute complete obstructive vessels for acute PE not clearly visualized. Results discussed with patient. Patient is unaware of this and is not on blood thinners. I spoke with sound physicians for admission for pulmonary embolism. Patient started on high-dose heparin and IV fluids. Case was discussed with my ED attending Dr. Mojica. Undiagnosed new problem with uncertain prognosis? @ -No Drug Therapy requiring intensive monitoring for toxicity (Heparin, Nitro, Insulin, Cardizem)? @ -No Were any procedures done? @ -No Diagnosis/symptom? @ -Pulmonary embolism Acute, or Chronic, or Acute on Chronic? @ -Acute Uncomplicated (without systemic symptoms) or Complicated (systemic symptoms)? @ -Complicated Side effects of treatment? @ -No Exacerbation, Progression, or Severe Exacerbation? @ -No Poses a threat to life or bodily function? How? (Chest pain, [place], [place], pneumonia, PE, COPD, DKA, ARF, appy, cholecystitis, CVA, Diverticulitis, Homicidal, Suicidal, threat to staff... and all critical care pts) @ -Yes (Tiki Fofana) - Lab Data Lab Results 11/10/24 11/10/24 11/10/24 Range/Units 13:53 14:32 14:32 WBC 11.9 H (3.8-10.6) k/uL RBC 5.06 (3.80-5.40) m/uL Hgb 15.0 (11.4-16.0) gm/dL Hct 45.7 (34.0-46.0) % MCV 90.2 (80.0-100.0) fL MCH 29.7 (25.0-35.0) pg MCHC 32.9 (31.0-37.0) g/dL RDW 14.0 (11.5-15.5) % Plt Count 306 (150-450) k/uL MPV 8.4 Neutrophils % 88 % Lymphocytes % 7 % Monocytes % 3 % Eosinophils % 1 % Basophils % 0 % Neutrophils # 10.4 H (1.3-7.7) k/uL Lymphocytes # 0.8 L (1.0-4.8) k/uL Monocytes # 0.4 (0-1.0) k/uL Eosinophils # 0.2 (0-0.7) k/uL Basophils # 0.0 (0-0.2) k/uL D-Dimer 0.88 H (<0.60) mg/L FEU Sodium (137-145) mmol/L Potassium (3.5-5.1) mmol/L Chloride (98-107) mmol/L Carbon Dioxide (22-30) mmol/L Anion Gap mmol/L BUN (7-17) mg/dL Creatinine (0.52-1.04) mg/dL Est GFR (CKD-EPI)AfAm (>60 ml/min/1.73 sqM) Est GFR (CKD-EPI)NonAf (>60 ml/min/1.73 sqM) Glucose (74-99) mg/dL Calcium (8.4-10.2) mg/dL Magnesium (1.6-2.3) mg/dL Total Bilirubin (0.2-1.3) mg/dL AST (14-36) U/L ALT (4-34) U/L Alkaline Phosphatase (38-126) U/L Troponin I (0.000-0.034) ng/mL Total Protein (6.3-8.2) g/dL Albumin (3.5-5.0) g/dL Influenza Type A (PCR) Not Detected (Not Detectd) Influenza Type B (PCR) Not Detected (Not Detectd) RSV (PCR) Not Detected (Not Detectd) SARS-CoV-2 (PCR) Not Detected (Not Detectd) 11/10/24 11/10/24 Range/Units 14:32 14:32 WBC (3.8-10.6) k/uL RBC (3.80-5.40) m/uL Hgb (11.4-16.0) gm/dL Hct (34.0-46.0) % MCV (80.0-100.0) fL MCH (25.0-35.0) pg MCHC (31.0-37.0) g/dL RDW (11.5-15.5) % Plt Count (150-450) k/uL MPV Neutrophils % % Lymphocytes % % Monocytes % % Eosinophils % % Basophils % % Neutrophils # (1.3-7.7) k/uL Lymphocytes # (1.0-4.8) k/uL Monocytes # (0-1.0) k/uL Eosinophils # (0-0.7) k/uL Basophils # (0-0.2) k/uL D-Dimer (<0.60) mg/L FEU Sodium 142 (137-145) mmol/L Potassium 4.5 (3.5-5.1) mmol/L Chloride 109 H (98-107) mmol/L Carbon Dioxide 23 (22-30) mmol/L Anion Gap 10 mmol/L BUN 13 (7-17) mg/dL Creatinine 0.67 (0.52-1.04) mg/dL Est GFR (CKD-EPI)AfAm >90 (>60 ml/min/1.73 sqM) Est GFR (CKD-EPI)NonAf >90 (>60 ml/min/1.73 sqM) Glucose 103 H (74-99) mg/dL Calcium 10.2 (8.4-10.2) mg/dL Magnesium 2.1 (1.6-2.3) mg/dL Total Bilirubin 2.2 H (0.2-1.3) mg/dL AST 28 (14-36) U/L ALT 20 (4-34) U/L Alkaline Phosphatase 143 H (38-126) U/L Troponin I 0.015 (0.000-0.034) ng/mL Total Protein 8.6 H (6.3-8.2) g/dL Albumin 4.9 (3.5-5.0) g/dL Influenza Type A (PCR) (Not Detectd) Influenza Type B (PCR) (Not Detectd) RSV (PCR) (Not Detectd) SARS-CoV-2 (PCR) (Not Detectd) Disposition <Patsy Obrien - Last Filed: 11/10/24 17:22> Time of Disposition: 18:59 <Tiki Fofana - Last Filed: 11/10/24 19:04> Clinical Impression: Pulmonary embolism Disposition: ADMITTED IP TO THIS HOSP Additional Instructions: Contact insurance about affordable inhalers and talk to Primary Care Provider about free samples or changing to more affordable inhaler. Check GoodRx for lower inhaler cost. Referrals: Sarah Tapia NPC [REFERRING] - 1-2 days
--- NOTE | 2024-11-10 14:30 | XR ---
EXAMINATION TYPE: XR chest 2V DATE OF EXAM: 11/10/2024 2:05 PM COMPARISON: 10/22/2004 CLINICAL INDICATION: Female, 54 years old with history of KARTHIK, TECHNIQUE: XR chest 2V view(s) obtained. FINDINGS: The heart size is normal. The pulmonary vasculature is normal. The lungs are clear. Small hiatal hernia is present IMPRESSION: 1. No acute pulmonary process. 2. Small hiatal hernia [facility], , 11/10/2024 2:28 PM
[2024-11-10] MEDS: IPRATROPIUM-ALBUTEROL 3 ML NEB INHALATION STA (15:30)
[2024-11-10] MEDS: SODIUM CHLORIDE 0.9% 1,000 ML IV STA (16:12)
[2024-11-10] MEDS: methylPREDNISolone SOD SUCCI 125 MG/2 ML VIAL IV STA (16:12)
[2024-11-10] MEDS: methylPREDNISolone SOD SUCCI 125 MG/2 ML VIAL IM ONE (16:21)
[2024-11-10 16:22] LABS: Basophils % (A) 0 %; Eosinophils # (A) 0.2 k/uL (0-0.7); Eosinophils % (A) 1 %; HCT 45.7 % (34.0-46.0); Lymphocytes # (A) 0.8 k/uL (1.0-4.8); Lymphocytes % (A) 7 %; MCH 29.7 pg (25.0-35.0); MCHC 32.9 g/dL (31.0-37.0); MCV 90.2 fL (80.0-100.0); Mean Platelet Volume 8.4; Monocytes # (A) 0.4 k/uL (0-1.0); Monocytes % (A) 3 %; Neutrophils # (A) 10.4 k/uL (1.3-7.7); Neutrophils % (A) 88 %; Platelet Count 306 k/uL (150-450); RBC 5.06 m/uL (3.80-5.40); WBC 11.9 k/uL (3.8-10.6)
[2024-11-10 16:33] LABS: ALT 20 U/L (4-34); AST 28 U/L (14-36); African American GFR (CKD) >90 (>60 ml/min/1.73 sqM); Albumin 4.9 g/dL (3.5-5.0); Alkaline Phosphatase 143 U/L (38-126); Anion Gap 10 mmol/L; Blood Urea Nitrogen 13 mg/dL (7-17); Calcium 10.2 mg/dL (8.4-10.2); Carbon Dioxide 23 mmol/L (22-30); Chloride 109 mmol/L (98-107); Glucose 103 mg/dL (74-99); Magnesium 2.1 mg/dL (1.6-2.3); Non-African American GFR(CKD) >90 (>60 ml/min/1.73 sqM); Potassium 4.5 mmol/L (3.5-5.1); Sodium 142 mmol/L (137-145); Total Bilirubin 2.2 mg/dL (0.2-1.3); Total Protein 8.6 g/dL (6.3-8.2)
[2024-11-10] MEDS: LORazepam 2 MG/ML INJ IV STA (16:51)
[2024-11-10] MEDS: SODIUM CHLORIDE 0.9% 500 ML 500 ML IV STA (16:51)
--- NOTE | 2024-11-10 18:02 | CT ---
EXAMINATION TYPE: CT chest angio for PE DATE OF EXAM: 11/10/2024 5:24 PM COMPARISON: None. CLINICAL INDICATION: Female, 54 years old with history of KARTHIK, tachycardia, elevated d-dimer, positiv e dimer, SOB, tachycardia TECHNIQUE: CT of the chest is performed on a spiral scan at 2 mm thick sections. Study is performed with intravenous contrast timed for evaluation for pulmonary embolism. This will limit additional po rtions of the evaluation. 3-D MIP images reconstructed by the technologist are reviewed on the compu ter in the coronal and sagittal planes. Contrast used:70 mL of Isovue 370 with IV Contrast, (none if empty) Oral contrast used: (none if empty) CT DLP: 477.9 mGycm, Automated exposure control for dose reduction was used. FINDINGS: No abrupt cut off is identified. However, there are several vascular structures which appear to have partial opacification with filling defects. Findings could reflect chronic pulmonary emboli without c omplete obstruction No mediastinal or hilar adenopathy enlarged by CT criteria is evident. The ascending aorta diameter at the level of the main pulmonary artery is 2.7 cm. The main pulmonary artery diameter at the bifurcation is 2.4 cm. There is a small to moderate size hiatal hernia prese nt Lung windows are clear. Limited CT sections were through the upper abdomen. Upper abdomen appears unremarkable. IMPRESSION: 1. Small partial filling defects without complete obstruction suggestive for chronic pulmonary emboli . 2. Acute complete obstructed vessels for acute pulmonary emboli is not clearly identified. [facility], , 11/10/2024 6:00 PM
[2024-11-10] MEDS ORDERED: HEPARIN SODIUM 1,000 UN/ML (10ML VL) IV PRN (18:52)
[2024-11-10] MEDS ORDERED: HYDROmorphone 0.5 MG/0.5 ML SYRINGE IVP PRN (18:53)
[2024-11-10] MEDS ORDERED: HYDROmorphone 1 MG/ML 1 ML SYRINGE IVP PRN (18:53)
[2024-11-10] MEDS ORDERED: NALOXONE 0.4 MG/ML 1 ML VIAL IV PRN (18:53)
[2024-11-10] MEDS ORDERED: ONDANSETRON 4 MG/2 ML VIAL IVP PRN (18:53)
[2024-11-10] MEDS ORDERED: ACETAMINOPHEN TAB 325 MG TAB PO PRN (18:53)
[2024-11-10] MEDS: HEPARIN SODIUM 1,000 UN/ML (10ML VL) IV ONE (19:40)
[2024-11-10] MEDS: HEPARIN SOD,PORK IN 0.45% NACL 25,000 UNIT in 0.45% NACL 1 250ML.BAG IV SCH (19:43)
[2024-11-10] MEDS: SODIUM CHLORIDE 0.9% 1,000 ML IV SCH (19:47)
[2024-11-10 20:13] LABS: INR 1.1 (<1.2); Prothrombin Time 11.7 sec (10.0-12.5)
--- NOTE | 2024-11-10 21:03 | P.HPIM ---
History of Present Illness H&P Date: 11/10/24 Chief Complaint: Shortness of breath Patient is a 54-year-old female with past medical history of asthma and hypertension presented to the emergency department with shortness of breath that started yesterday. Patient reported at the shortness of breath started when she was sitting down resting. She also reported some wheezing at that time. The shortness of breath gets worse with walking in the cold. Patient does use trilogy at home (although can no longer afford it due to cost) and inhales 1 puff in the morning as well as Xopenex inhaler which is mildly helpful. Patient reports that this feels like the previous pneumonia she had in the past. She was also diagnosed with bronchitis a few weeks ago stated that she just had clear sputum since then. However today she noticed that she started coughing up yellowish sputum. Patient also reported using breathing treatments at home with slight improvement. Denies chest pain, fever, belly pain, diarrhea, constipa tion, nausea, vomiting, upper or lower extremity weakness, numbness or tingling sensation. Patient does report chills, runny nose and sputum production. ED documentation reviewed. In the ED patient was treated with methylprednisolone 125 mg IV x 1, one and half bolus of normal saline, lorazepam 1 mg IV x 1 Vitals on admission temperature 98.7, pulse rate 138, respiratory rate 24, blood pressure 174/105, O2 sat of 95% on nasal cannula 2 L/min EKG independently interpreted as sinus tachycardia CXR shows no acute pulmonary process, small hiatal hernia CT chest angio showed small partial filling defects without complete obstruction suggestive for chronic pulmonary emboli. Acute complete obstructed vessels for acute pulmonary emboli is not clearly identified. Labs on admission show WBC 11.9, hemoglobin 15, hematocrit 45.7, platelet 306, D-dimer 0.88, sodium 142, potassium 4.5, chloride 109, carbon dioxide 23, BUN 13, creatinine 0.67, glucose 103, total bilirubin 2.2, alkaline phosphatase 143, troponin 0.015 Review of systems: Pertinent positives and negatives as discussed in HPI, a complete review of systems was performed and all other systems are negative. PMH: Asthma, hypertension PSH: section FMH: No pertinent family history Allergies: Cashew nut, cheese, melon, shellfish derived, tree nuts, wheat Social history: Tobacco: Was never smoker Alcohol: No reported Recreational drugs: No reported Travel: No recent travel history Sick contacts: Son recently had COVID Physical examination: Vital signs reviewed General: nontoxic, no distress, appears at stated age, well-appearing Derm: warm, dry, intact Head: atraumatic, normocephalic, symmetric Eyes: EOMI, anicteric sclera Mouth: no lip lesion, mucus membranes moist Cardiovascular: S1 S2 reg, no murmur, tachycardic Lungs: CTA bilateral, no rhonchi, no rales, no accessory muscle use, no wheezing Abdominal: soft, non-tender to palpation Extremities: No cyanosis, clubbing, or pedal edema. Neuro: Alert, Oriented, Gross neurological examination did not reveal any focal deficits. Intact upper and lower extremity muscle strength bilaterally. Cranial nerves II to XII grossly intact. Intact sensation in the upper and lower extremity. Psych: well appearing, appropriate affect Assessment/Plan: Patient is a 54-year-old female with past medical history of asthma and hypertension. Patient will be admitted to internal medicine service and will be closely monitor. Active: #. Pulmonary embolism Elevated D-dimer 0.88 CTA showed small partial filling defects without complete obstruction suggestive for chronic pulmonary emboli Tachycardia Discontinue heparin infusion switch to rivaroxaban 10 mg p.o. daily Serial troponin at 0.015, 0.023 EKG showed sinus tachycardia supplemental oxygen #. Leukocytosis, reactive to above WBC 11.9 Likely as a result of chronic pulmonary embolism Monitor CBC #. Hypertension, uncontrolled Lisinopril 10 mg p.o. daily #. Asthma Restart home medication F: No restrictions E: Replete as needed N: Regular diet A: Ambulatory DVT prophylaxis: xarelto for PE The patient is admitted with an anticipated more than 2 midnight stay for evaluation of pulmonary embolism CODE STATUS: Full code Discussed with: Dr. Munoz Anticipated discharge place: Home I have seen and evaluated the patient today. I Discussed the case with the resident and agree with the resident's findings I edited the assessment and plan as necessary as documented in the resident's note. Past Medical History Past Medical History: Asthma, Hypertension History of Any Multi-Drug Resistant Organisms: None Reported Past Surgical History: Section Past Psychological History: No Psychological Hx Reported Smoking Status: Never smoker Past Alcohol Use History: None Reported Past Drug Use History: None Reported Medications and Allergies Home Medications Medication Instructions Recorded Confirmed Type Levalbuterol Nebulized [Xopenex 1.25 mg INHALATION RT-TID PRN 11/10/24 11/10/24 History Nebulized] Allergies Allergy/AdvReac Type Severity Reaction Status Date / Time cashew nut Allergy Anaphylaxis Verified 11/10/24 16:21 cheese Allergy Unknown Verified 11/10/24 16:21 melon Allergy Anaphylaxis Verified 11/10/24 16:21 shellfish derived [Shrimp] Allergy Anaphylaxis Verified 11/10/24 16:21 tree nut Allergy Anaphylaxis Verified 11/10/24 16:21 wheat Allergy Anaphylaxis Verified 11/10/24 16:21 Physical Exam Vitals: Vital Signs Temp Pulse Resp BP Pulse Ox 11/10/24 16:51 26 H 11/10/24 16:45 98.7 F 138 H 24 174/105 95 11/10/24 12:47 99.4 F 138 H 22 158/110 92 L Intake and Output 11/10/24 11/10/24 11/10/24 06:59 14:59 22:59 Other: Weight 72.575 kg Results CBC & Chem 7: 11/10/24 14:32 11/10/24 14:32 Labs: Abnormal Lab Results - Last 24 Hours (Table) 11/10/24 11/10/24 11/10/24 Range/Units 14:32 14:32 14:32 WBC 11.9 H (3.8-10.6) k/uL Neutrophils # 10.4 H (1.3-7.7) k/uL Lymphocytes # 0.8 L (1.0-4.8) k/uL D-Dimer 0.88 H (<0.60) mg/L FEU Chloride 109 H (98-107) mmol/L Glucose 103 H (74-99) mg/dL Total Bilirubin 2.2 H (0.2-1.3) mg/dL Alkaline Phosphatase 143 H (38-126) U/L Total Protein 8.6 H (6.3-8.2) g/dL
[2024-11-10] MEDS ORDERED: ALBUTEROL NEBULIZED 2.5 MG/3 ML INHALATION PRN (23:45)
[2024-11-11] MEDS ORDERED: Rivaroxaban Initiation Dose--VTE 15 MG TAB PO SCH
[2024-11-11 02:08] LABS: Basophils % (A) 0 %; Eosinophils % (A) 1 %; HCT 41.4 % (34.0-46.0); HGB 13.6 gm/dL (11.4-16.0); Lymphocytes # (A) 0.7 k/uL (1.0-4.8); Lymphocytes % (A) 8 %; MCH 30.5 pg (25.0-35.0); MCHC 32.9 g/dL (31.0-37.0); MCV 92.6 fL (80.0-100.0); Mean Platelet Volume 7.8; Monocytes # (A) 0.1 k/uL (0-1.0); Monocytes % (A) 1 %; Neutrophils # (A) 7.5 k/uL (1.3-7.7); Neutrophils % (A) 90 %; Platelet Count 254 k/uL (150-450); RBC 4.47 m/uL (3.80-5.40); RDW 14.1 % (11.5-15.5); WBC 8.3 k/uL (3.8-10.6)
[2024-11-11] MEDS: RIVAROXABAN 15 MG TAB PO SCH (02:19)
[2024-11-11 07:21] VITALS: BP 147/88; PULSE 93; RESP 16; TEMP 98.7
[2024-11-11] MEDS ORDERED: RIVAROXABAN 15 MG TAB PO SCH (07:30)
[2024-11-11] MEDS: lisinopriL 10 MG TAB PO SCH (08:28)
[2024-11-11] MEDS: predniSONE 20 MG TAB PO SCH (10:28)
[2024-11-11 10:38] LABS: Basophils # (A) 0.01 X 10*3/uL (0.00-0.10); Basophils % (A) 0.1 %; Eosinophils # (A) 0 X 10*3/uL (0.04-0.35); Eosinophils % (A) 0 %; HCT 42.3 % (37.2-46.3); HGB 13.5 g/dL (12.0-15.0); Lymphocytes # (A) 0.91 X 10*3/uL (0.90-5.00); Lymphocytes % (A) 12.1 %; MCH 29.1 pg (27.0-32.0); MCHC 31.9 g/dL (32.0-37.0); MCV 91.2 FL (80.0-97.0); Mean Platelet Volume 11.5 FL (9.5-12.2); Monocytes # (A) 0.25 X 10*3/uL (0.20-1.00); Monocytes % (A) 3.3 %; NRBC Per 100 WBC 0 X 10*3/uL (0.00-0.01); Neutrophils # (A) 6.35 X 10*3/uL (1.80-7.70); Neutrophils % (A) 84.2 %; Platelet Count 292 X 10*3/uL (140-440); RBC 4.64 X 10*6/uL (4.10-5.20); RDW 14.4 % (11.5-14.5); WBC 7.54 X 10*3/uL (4.50-10.00)
--- NOTE | 2024-11-11 11:23 | P.DS ---
Providers Date of admission: 11/10/24 20:03 Expected date of discharge: 11/11/24 Attending physician: Aureliano Munoz MD Primary care physician: Rogelio Allen MD Hospital Course: Hospital Course: Patient is a 54-year-old female with past medical history of asthma and hypertension presented to the emergency department with shortness of breath that started yesterday. Patient reported at the shortness of breath started when she was sitting down resting. She also reported some wheezing at that time. The shortness of breath gets worse with walking in the cold. Patient does use trilogy at home (although can no longer afford it due to cost) and inhales 1 puff in the morning as well as Xopenex inhaler which is mildly helpful. Patient reports that this feels like the previous pneumonia she had in the past. She was also diagnosed with bronchitis a few weeks ago stated that she just had clear sputum since then. However today she noticed that she started coughing up yellowish sputum. Patient also reported using breathing treatments at home with slight improvement. Denies chest pain, fever, belly pain, diarrhea, constipation, nausea, vomiting, upper or lower extremity weakness, numbness or tingling sensation. Patient does report chills, runny nose and sputum production. In the ED patient was treated with methylprednisolone 125 mg IV x 1, one and half bolus of normal saline, lorazepam 1 mg IV x 1. Vitals on admi ssion temperature 98.7, pulse rate 138, respiratory rate 24, blood pressure 174/105, O2 sat of 95% on nasal cannula 2 L/min. Initial EKG showed sinus tachycardia. Chest x-ray showed no acute pulmonary process, small hiatal hernia. CT chest angio showed small partial filling defects without complete obstruction suggestive for chronic pulmonary emboli; acute complete obstruction vessels is not clearly identified. Initial labs: WBCs 11.9, hemoglobin 15, hematocrit 45.7, platelets 306, D-dimer 0.88, sodium 142, potassium 4.5, chloride 109, CO2 23, BUN 13, creatinine 0.67, glucose 103, troponin X 3 0.015, 0.023, 0.016. She was started on Xarelto for chronic pulmonary emboli and predinose 40 mg for acute asthma exacerbation. She was advised to follow-up with a web developer and her primary care provider. Patient is medically stable for discharge. On room air. Final Diagnosis: #. Acute asthma exacerbation #. Pulmonary emboli, chronic #. Leukocytosis, resolved Physical examination: Vital signs reviewed General: Nontoxic, no distress, appears stated age, well-appearing Derm: Warm, dry, intact Head: Atraumatic, normocephalic, symmetric Eyes: EOMI, anicteric sclera Mouth: No lip lesion, mucus membranes moist Cardiovascular: S1-S2 regular, no murmur Lungs: Expiratory wheezing bilaterally; no rhonchi, no rales, no accessory muscle use Abdominal: Soft, non-tender to palpation Extremities: No cyanosis, clubbing, or pedal edema. Neuro: Alert, oriented x 3, gross neurological examination did not reveal any focal deficits. Cranial nerves II to XII grossly intact. A total of 32 minutes of time were spent preparing this complex discharge summary. Patient was discharged on 11/11/2024 at 1117. I have seen and evaluated the patient today. Discussed with the resident and agree with the residents finding and plan as documented in the resident's note. Changes highlighted in blue font. Patient Condition at Discharge: Stable Plan - Discharge Summary Discharge Rx Participant: No New Discharge Prescriptions: New predniSONE [Deltasone] 40 mg PO DAILY #8 tab Rivaroxaban [Xarelto Starter Pack] 0 mg PO DIRECTED 30 Days #1 packet Changed Levalbuterol Nebulized [Xopenex Nebulized] 1.25 mg INHALATION RT-TID PRN #120 ml PRN Reason: Shortness Of Breath Discharge Medication List Levalbuterol Nebulized [Xopenex Nebulized] 1.25 mg INHALATION RT-TID PRN #120 ml 11/11/24 [Rx] Rivaroxaban [Xarelto Starter Pack] 0 mg PO DIRECTED 30 Days #1 packet 11/11/24 [Rx] predniSONE [Deltasone] 40 mg PO DAILY #8 tab 11/11/24 [Rx] Follow up Appointment(s)/Referral(s): Ryan Betancur DO [Doctor of Osteopathic Medicine] - 11/26/24 1:30 pm Sarah Tapia NPC [REFERRING] - 1-2 days Patient Instructions/Handouts: Asthma (DC), Pulmonary Embolism (DC) Activity/Diet/Wound Care/Special Instructions: Contact insurance about affordable inhalers and talk to Primary Care Provider about free samples or changing to more affordable inhaler. Check GoodRx for lower inhaler cost. Discharge Disposition: HOME SELF-CARE
[2024-11-11] MEDS: ALBUTEROL NEBULIZED 2.5 MG/3 ML INHALATION SCH (12:48)
[2024-12-02] MEDS ORDERED: RIVAROXABAN 20 MG TAB PO SCH (17:30)
== END 2024-11-11 13:27 | disposition home or self-care (01) | DRG 189 ==
LOC: SUPCPDRO 12:38 → EC 12:38 → 3SCARD 20:03 → 4SSUR 11-11 04:10
PROVIDERS: ADMIT Internal Medicine; ATTEND Internal Medicine
PROC: 3E0F7SF Introduction of Other Gas into Respiratory Tract, Via Natural or Artificial Opening (ICD-10-PCS; principal; 2024-11-10)
DX: J96.01 Acute respiratory failure with hypoxia (principal); J45.901 Unspecified asthma with (acute) exacerbation; I27.82 Chronic pulmonary embolism; Z11.52 Encounter for screening for COVID-19; I10 Essential (primary) hypertension; D72.829 Elevated white blood cell count, unspecified; Z87.01 Personal history of pneumonia (recurrent); Z91.018 Allergy to other foods; Z91.013 Allergy to seafood
CPT/HCPCS: 36415; 71046; 71275; 80053; 83735; 84484; 85025; 85379; 85610; 85730; 87636; 93005; 96361; 96365; 96366; 96375; 99285

== ENCOUNTER 2025-06-25 06:54 | Observation (INO) | payer BC ==
--- NOTE | 2025-06-25 07:21 | ED ---
General Adult HPI - General Chief complaint: Shortness of Breath Stated complaint: SOB Time Seen by Provider: 06/25/25 07:04 Source: patient, RN notes reviewed Mode of arrival: wheelchair Limitations: no limitations - History of Present Illness Initial comments: Patient is a 54-year-old female present to the emergency department with concerns with difficulty in breathing. Onset of symptoms was yesterday. Patient believes she caught a cold. No fever. Patient does have congestion and cough with yellow sputum. No calf pain or leg swelling. Patient is on Xarelto from history of pulmonary embolism. Patient states this dyspnea does feel like her asthma. Patient states when she coughs it exacerbates it more. - Related Data Previous Rx's Medication Instructions Recorded Levalbuterol Nebulized [Xopenex 1.25 mg INHALATION RT-TID PRN #120 11/11/24 Nebulized] ml Rivaroxaban [Xarelto Starter Pack] 0 mg PO DIRECTED 30 Days #1 11/11/24 packet predniSONE [Deltasone] 40 mg PO DAILY #8 tab 11/11/24 Allergies Allergy/AdvReac Type Severity Reaction Status Date / Time cashew nut Allergy Anaphylaxis Verified 06/25/25 06:58 cheese Allergy Unknown Verified 06/25/25 06:58 melon Allergy Anaphylaxis Verified 06/25/25 06:58 shellfish derived [Shrimp] Allergy Anaphylaxis Verified 06/25/25 06:58 tree nut Allergy Anaphylaxis Verified 06/25/25 06:58 wheat Allergy Anaphylaxis Verified 06/25/25 06:58 Review of Systems ROS Statement: Those systems with pertinent positive or pertinent negative responses have been documented in the HPI. ROS Other: All systems not noted in ROS Statement are negative. Constitutional: Denies: fever Eyes: Denies: eye pain ENT: Reports: congestion. Denies: ear pain Respiratory: Reports: as per HPI, cough, dyspnea, wheezes Cardiovascular: Denies: chest pain Endocrine: Denies: fatigue Gastrointestinal: Denies: abdominal pain Musculoskeletal: Denies: back pain Past Medical History Past Medical History: Asthma, Hypertension History of Any Multi-Drug Resistant Organisms: None Reported Past Surgical History: Section Past Psychological History: No Psychological Hx Reported Smoking Status: Never smoker Past Alcohol Use History: None Reported Past Drug Use History: None Reported General Exam Limitations: no limitations General appearance: alert, in no apparent distress Head exam: Present: normocephalic Eye exam: Present: normal appearance Neck exam: Present: normal inspection Respiratory exam: Present: wheezes Cardiovascular Exam: Present: tachycardia GI/Abdominal exam: Present: soft. Absent: tenderness Extremities exam: Present: normal inspection. Absent: pedal edema, calf tenderness Neurological exam: Present: alert Psychiatric exam: Present: normal affect, normal mood Skin exam: Present: normal color Course Vital Signs 06/25/25 06/25/25 06/25/25 06:55 07:29 08:09 Temperature 97.9 F Pulse Rate 122 H 115 H 114 H Respiratory 20 22 Rate Blood Pressure 166/95 179/90 O2 Sat by Pulse 89 L 94 L Oximetry 06/25/25 06/25/25 06/25/25 08:15 08:18 09:10 Temperature Pulse Rate 116 H 116 H 113 H Respiratory 18 18 Rate Blood Pressure 169/94 176/100 O2 Sat by Pulse 98 95 Oximetry EKG Findings - EKG Results: EKG: interpreted by SAMPSON, sinus rhythm, normal axis, normal QRS, normal ST/T EKG shows: tachycardia Medical Decision Making - Medical Decision Making Was pt. sent in by a medical professional or institution (, PA, MEAT CURER, urgent care, hospital, or fci...) When possible be specific @ -No Did you speak to anyone other than the patient for history (EMS, parent, family, police, friend...)? What history was obtained from this source @ -No Did you review nursing and triage notes (agree or disagree)? Why? @ -I reviewed and agree with nursing and triage notes Were old charts reviewed (outside hosp., previous admission, EMS record, old EKG, old radiological studies, urgent care reports/EKG's, fci records)? Report findings @ -No old charts were reviewed Differential Diagnosis (chest pain, altered mental status, abdominal pain women, abdominal pain men, vaginal bleeding, weakness, fever, dyspnea, syncope, headache, dizziness, GI bleed, back pain, seizure, CVA, palpatations, mental health, musculoskeletal)? @ -Differential Dyspnea: Coronary syndrome, arrhythmia, tamponade, asthma, COPD, pulmonary embolism, pneumonia, pneumothorax, pulmonary effusion, anaphylaxis, diabetic ketoacidosis, flailed chest, pulmonary contusion, diaphragmatic rupture, anemia, neuromuscular, this is not meant to be an all-inclusive list. EKG interpreted by me (3pts min.). @ -As above X-rays interpreted by me (1pt min.). @ -Chest x-ray shows no acute process CT interpreted by me (1pt min.). @ -None done U/S interpreted by me (1pt. min.). @ -None done What testing was considered but not performed or refused? (CT, X-rays, U/S, labs)? Why? @ -None What meds were considered but not given or refused? Why? @ -None Did you discuss the management of the patient with other professionals (professionals i.e. , PA, MEAT CURER, lab, RT, psych nurse, certified social workers in health care, meat team lead, teacher, air crew officer, manager of case)? Give summary @ -[facility] practitioner Latasha Cabral to admit covering Dr. aguilar Was smoking cessation discussed for >3mins.? @ -No Was critical care preformed (if so, how long)? @ -No Were there social determinants of health that impacted care today? How? (Homelessness, low income, unemployed, alcoholism, drug addiction, transportation, low edu. Level, literacy, decrease access to med. care, correction, rehab)? @ -No Was there de-escalation of care discussed even if they declined (Discuss DNR or withdrawal of care, Hospice)? DNR status @ -No What co-morbidities impacted this encounter? (DM, HTN, Smoking, COPD, CAD, Cancer, CVA, ARF, Chemo, Hep., AIDS, mental health diagnosis, sleep apnea, morbid obesity)? @ -Asthma history Was patient admitted / discharged? Hospital course, mention meds given and route, prescriptions, significant lab abnormalities, going to OR and other pertinent info. @ -Patient presents with dyspnea. On reevaluation lung sounds have improved however patient remains with pulse ox 94% on 3 L and heart rate 120. Patient will be admitted with pulmonary consult. Patient updated on results and plan. Admission orders written Undiagnosed new problem with uncertain prognosis? @ -No Drug Therapy requiring intensive monitoring for toxicity (Heparin, Nitro, Insulin, Cardizem)? @ -No Were any procedures done? @ -No Diagnosis/symptom? @ -Dyspnea Acute, or Chronic, or Acute on Chronic? @ -Acute Uncomplicated (without systemic symptoms) or Complicated (systemic symptoms)? @ -Default Side effects of treatment? @ -No Exacerbation, Progression, or Severe Exacerbation? @ -No Poses a threat to life or bodily function? How? (Chest pain, USA, MD, pneumonia, PE, COPD, DKA, ARF, appy, cholecystitis, CVA, Diverticulitis, Homicidal, Suicidal, threat to staff... and all critical care pts) @Threat to pulmonary function - Lab Data Result diagrams: 06/25/25 07:42 06/25/25 07:42 Lab Results 06/25/25 06/25/25 06/25/25 Range/Units 07:42 07:42 07:42 WBC 10.01 H (4.50-10.00) 10*3/uL RBC 4.75 (4.10-5.20) 10*6/uL Hgb 14.2 (12.0-15.0) g/dL Hct 43.5 (37.2-46.3) % MCV 91.6 (80.0-97.0) fL MCH 29.9 (27.0-32.0) pg MCHC 32.6 (32.0-37.0) g/dL Plt Count 306 (140-440) 10*3/uL MPV 10.1 (9.5-12.2) fL Immature Gran % (Auto) 0.2 % Neutrophils % 79.6 % Lymphocytes % 11.1 % Monocytes % 4.8 % Eosinophils % 3.6 % Basophils % 0.7 % Immature Gran # 0.02 (0.00-0.04) 10*3/uL Neutrophils # 7.97 H (1.80-7.70) 10*3/uL Lymphocytes # 1.11 (0.90-5.00) 10*3/uL Monocytes # 0.48 (0.20-1.00) 10*3/uL Eosinophils # 0.36 H (0.04-0.35) 10*3/uL Basophils # 0.07 (0.00-0.10) 10*3/uL PT (10.0-12.5) sec INR (<1.2) APTT (22.0-30.0) sec Sodium 143 (137-145) mmol/L Potassium 4.4 (3.5-5.1) mmol/L Chloride 107 (98-107) mmol/L Carbon Dioxide 26 (22-30) mmol/L Anion Gap 10 mmol/L BUN 15 (7-17) mg/dL Creatinine 0.68 (0.52-1.04) mg/dL Est GFR (CKD-EPI)AfAm >90 (>60 ml/min/1.73 sqM) Est GFR (CKD-EPI)NonAf >90 (>60 ml/min/1.73 sqM) Glucose 103 H (74-99) mg/dL Plasma Lactic Acid Andriy (0.7-2.0) mmol/L Calcium 9.4 (8.4-10.2) mg/dL Magnesium 2.1 (1.6-2.3) mg/dL Total Bilirubin 1.6 H (0.2-1.3) mg/dL AST 48 H (14-36) U/L ALT 20 (4-34) U/L Alkaline Phosphatase 140 H (38-126) U/L Total Protein 8.5 H (6.3-8.2) g/dL Albumin 4.8 (3.5-5.0) g/dL Influenza Type A (PCR) Not Detected (Not Detectd) Influenza Type B (PCR) Not Detected (Not Detectd) RSV (PCR) Not Detected (Not Detectd) SARS-CoV-2 (PCR) Not Detected (Not Detectd) 06/25/25 06/25/25 Range/Units 07:42 08:38 WBC (4.50-10.00) 10*3/uL RBC (4.10-5.20) 10*6/uL Hgb (12.0-15.0) g/dL Hct (37.2-46.3) % MCV (80.0-97.0) fL MCH (27.0-32.0) pg MCHC (32.0-37.0) g/dL Plt Count (140-440) 10*3/uL MPV (9.5-12.2) fL Immature Gran % (Auto) % Neutrophils % % Lymphocytes % % Monocytes % % Eosinophils % % Basophils % % Immature Gran # (0.00-0.04) 10*3/uL Neutrophils # (1.80-7.70) 10*3/uL Lymphocytes # (0.90-5.00) 10*3/uL Monocytes # (0.20-1.00) 10*3/uL Eosinophils # (0.04-0.35) 10*3/uL Basophils # (0.00-0.10) 10*3/uL PT 11.3 (10.0-12.5) sec INR 1.0 (<1.2) APTT 22.0 (22.0-30.0) sec Sodium (137-145) mmol/L Potassium (3.5-5.1) mmol/L Chloride (98-107) mmol/L Carbon Dioxide (22-30) mmol/L Anion Gap mmol/L BUN (7-17) mg/dL Creatinine (0.52-1.04) mg/dL Est GFR (CKD-EPI)AfAm (>60 ml/min/1.73 sqM) Est GFR (CKD-EPI)NonAf (>60 ml/min/1.73 sqM) Glucose (74-99) mg/dL Plasma Lactic Acid Andriy 1.0 (0.7-2.0) mmol/L Calcium (8.4-10.2) mg/dL Magnesium (1.6-2.3) mg/dL Total Bilirubin (0.2-1.3) mg/dL AST (14-36) U/L ALT (4-34) U/L Alkaline Phosphatase (38-126) U/L Total Protein (6.3-8.2) g/dL Albumin (3.5-5.0) g/dL Influenza Type A (PCR) (Not Detectd) Influenza Type B (PCR) (Not Detectd) RSV (PCR) (Not Detectd) SARS-CoV-2 (PCR) (Not Detectd) Disposition Clinical Impression: Dyspnea Disposition: ADMITTED IP TO THIS HOSP Is patient prescribed a controlled substance at d/c from ED?: No Referrals: Rogelio Allen MD [REFERRING] - 1-2 days Time of Disposition: 09:10
[2025-06-25 07:55] LABS: Basophils # (A) 0.07 10*3/uL (0.00-0.10); Basophils % (A) 0.7 %; Eosinophils # (A) 0.36 10*3/uL (0.04-0.35); Eosinophils % (A) 3.6 %; HCT 43.5 % (37.2-46.3); HGB 14.2 g/dL (12.0-15.0); Lymphocytes # (A) 1.11 10*3/uL (0.90-5.00); Lymphocytes % (A) 11.1 %; MCH 29.9 pg (27.0-32.0); MCHC 32.6 g/dL (32.0-37.0); MCV 91.6 fL (80.0-97.0); Monocytes # (A) 0.48 10*3/uL (0.20-1.00); Monocytes % (A) 4.8 %; Neutrophils # (A) 7.97 10*3/uL (1.80-7.70); Neutrophils % (A) 79.6 %; Platelet Count 306 10*3/uL (140-440); RBC 4.75 10*6/uL (4.10-5.20); RDW 14.2 % (11.5-14.5); WBC 10.01 10*3/uL (4.50-10.00)
[2025-06-25] MEDS: IPRATROPIUM-ALBUTEROL 3 ML NEB INHALATION STA (08:09)
[2025-06-25] MEDS: methylPREDNISolone SOD SUCCI 125 MG/2 ML VIAL IV STA (08:14)
[2025-06-25 08:19] LABS: ALT 20 U/L (4-34); African American GFR (CKD) >90 (>60 ml/min/1.73 sqM); Albumin 4.8 g/dL (3.5-5.0); Anion Gap 10 mmol/L; Blood Urea Nitrogen 15 mg/dL (7-17); Calcium 9.4 mg/dL (8.4-10.2); Carbon Dioxide 26 mmol/L (22-30); Chloride 107 mmol/L (98-107); Glucose 103 mg/dL (74-99); Non-African American GFR(CKD) >90 (>60 ml/min/1.73 sqM); Sodium 143 mmol/L (137-145); Total Protein 8.5 g/dL (6.3-8.2)
[2025-06-25 08:24] LABS: AST 48 U/L (14-36); Alkaline Phosphatase 140 U/L (38-126)
[2025-06-25 08:25] LABS: Magnesium 2.1 mg/dL (1.6-2.3); Potassium 4.4 mmol/L (3.5-5.1)
[2025-06-25 08:31] LABS: RSV Not Detected (Not Detectd)
--- NOTE | 2025-06-25 08:42 | XR ---
EXAMINATION TYPE: XR chest 2V DATE OF EXAM: 06/25/2025 8:36 AM COMPARISON: 11/10/2024 CLINICAL INDICATION: Female, 54 years old with history of difficulty breathing: Shortness of breath TECHNIQUE: XR chest 2V views of the chest are obtained. FINDINGS: Scattered senescent parenchymal changes noted. Hyperinflation compatible with COPD. No evidence for infiltrate. No evidence for atelectasis. Heart size is stable. Mediastinal structures are stable and grossly unremarkable. No evidence for hilar prominence. Degenerative changes dorsal spine. IMPRESSION: 1. No evidence for acute pulmonary disease. [facility], , 06/25/2025 8:40 AM
[2025-06-25 08:57] LABS: INR 1.0 (<1.2); Partial Thromboplastin Time 22.0 sec (22.0-30.0); Prothrombin Time 11.3 sec (10.0-12.5)
[2025-06-25] MEDS ORDERED: NALOXONE 0.4 MG/ML 1 ML VIAL IVP PRN (09:11)
[2025-06-25] MEDS ORDERED: IPRATROPIUM-ALBUTEROL 3 ML NEB INHALATION PRN (09:11)
[2025-06-25] MEDS ORDERED: DEXTROMETHORPHAN PO PRN (10:06)
[2025-06-25] MEDS ORDERED: [UNRECOGNIZED DRUG - OTHER] PO PRN (10:06)
[2025-06-25] MEDS ORDERED: ACETAMINOPHEN PO PRN (10:06)
[2025-06-25] MEDS ORDERED: CHLORPHENIRAMINE PO PRN (10:06)
[2025-06-25] MEDS ORDERED: NON FORMULARY DRUG (Levalbuterol Nebulized 1.25 MG/3 ML Ml) INHALATION SCH (10:15)
[2025-06-25] MEDS: METOPROLOL TARTRATE 25 MG TAB PO SCH (13:45)
[2025-06-25] MEDS: methylPREDNISolone SOD SUCCI 125 MG/2 ML VIAL IV SCH (13:46)
[2025-06-25] MEDS: IPRATROPIUM-ALBUTEROL 3 ML NEB INHALATION SCH (14:04)
[2025-06-25] MEDS: PSEUDOEPHEDRINE 30 MG TAB PO SCH (15:52)
[2025-06-25] MEDS: SYMBICORT 80-4.5 MCG INHALER INHALATION SCH (18:46)
--- NOTE | 2025-06-25 23:08 | HP ---
HISTORY AND PHYSICAL CHIEF COMPLAINTS: Shortness of breath and hypertension. HISTORY OF PRESENT ILLNESS: This 54-year-old woman with a past medical history of asthma, was having significant shortness of breath, the patient has upper respiratory symptoms a couple of days. The patient also had a cold. The patient received some breathing treatments, which provided some relief. Blood pressure is elevated. The patient also tachycardic, also chest x-ray on admission, which I reviewed personally showed increased bronchovascular markings. No evidence of any pneumonia. PAST MEDICAL HISTORY: History of asthma, hypertension. Rest of the chart is also reviewed. HOME MEDICATIONS: Reviewed. Include Coricidin. Dose and rest of medications reviewed. ALLERGIES: Cashew nut. The rest of the allergies also reviewed. FAMILY HAS: No history of heart disease or strokes in the family. SOCIAL HISTORY: No smoke or alcohol intake. REVIEW OF SYSTEMS: Fourteen-point review of systems is negative except as mentioned earlier. PHYSICAL EXAMINATION: VITAL SIGNS: Pulse is 120, blood pressure 160/97, respirations 18. HEENT: Conjunctivae normal. NECK: No JVD. CARDIOVASCULAR: S1, S2. RESPIRATION: Breath sounds diminished at the bases. Bilateral scattered rhonchi and crackles, expiratory wheezing. ABDOMEN: Soft, nontender. NERVOUS SYSTEM: Nonfocal. LABORATORY DATA: Reviewed. ASSESSMENT: 1. Acute bronchial asthma acute exacerbation. 2. Acute purulent tracheobronchitis. 3. Upper respiratory infection. 4. Hypertension. 5. Tachycardia. 6. Elevated WBC. 7. Eosinophilia. 8. Elevated bilirubin. RECOMMENDATIONS AND DISCUSSION: This 54-year-old woman presented with multiple complex medical issues. We will monitor the patient closely. Continue the current management and treatment. I would recommend bronchodilators, IV steroids, empiric antibiotics. Resume the home medications, add Lopressor to the current regimen. The prognosis guarded because of multiple complex medical conditions. See orders for details. MMODL / IJN: [id number] /
[2025-06-26] MEDS: RIVAROXABAN 20 MG TAB PO SCH (07:43)
[2025-06-26 09:49] LABS: Basophils # (A) 0.02 X 10*3/uL (0.00-0.10); Basophils % (A) 0.2 %; Eosinophils # (A) 0 X 10*3/uL (0.04-0.35); Eosinophils % (A) 0 %; HCT 42.1 % (37.2-46.3); HGB 13.5 g/dL (12.0-15.0); Immature Grans, Automated 0.40 %; Lymphocytes # (A) 0.85 X 10*3/uL (0.90-5.00); Lymphocytes % (A) 7.2 %; MCH 29.2 pg (27.0-32.0); MCHC 32.1 g/dL (32.0-37.0); MCV 91.1 FL (80.0-97.0); Monocytes # (A) 0.11 X 10*3/uL (0.20-1.00); Monocytes % (A) 0.9 %; NRBC Per 100 WBC 0 X 10*3/uL (0.00-0.01); Neutrophils # (A) 10.79 X 10*3/uL (1.80-7.70); Neutrophils % (A) 91.3 %; Platelet Count 354 X 10*3/uL (140-440); RBC 4.62 X 10*6/uL (4.10-5.20); RDW 14.4 % (11.5-14.5); WBC 11.82 X 10*3/uL (4.50-10.00)
[2025-06-26 09:55] LABS: Anion Gap 15.50 mmol/L (4.00-12.00); BUN/Creat Ratio 23.62 Ratio (12.00-20.00); Blood Urea Nitrogen 18.9 mg/dL (9.0-27.0); Calcium 9.2 mg/dL (8.7-10.3); Carbon Dioxide 21.5 mmol/L (21.6-31.8); Chloride 105 mmol/L (96-109); Glucose 131 mg/dL (70-110); Potassium 4.2 mmol/L (3.5-5.5); Sodium 142 mmol/L (135-145)
--- NOTE | 2025-06-26 10:55 | P.CNPUL ---
History of Present Illness Consult date: 06/26/25 Requesting physician: Migel Mary Reason for consult: cough Chief complaint: Cough, sinus congestion History of present illness: This is a very pleasant 54-year-old female patient with a known history of hypertension, mild intermittent chronic bronchial asthma, pulmonary embolism anticoagulated with Xarelto. She presented here to the emergency room yesterday with a 1 day history of cold-like symptoms. She had cough congestion, sore throat and sinus drainage. Some shortness of breath feeling maybe her asthma had flared up due to her upper respiratory symptoms. No fever or chills. No nausea vomiting or diarrhea. No sick contacts. Chest x-ray revealed no acute pulmonary process. White count 10.0. Hemoglobin 13.5. Platelets 354. Sodium 142. Potassium 4.2. Bicarb 22. BUN 19. Creatinine 0.9. Glucose 131. Procalcitonin negative at 0.04. Viral screen negative for influenza A/B, RSV or COVID. She is seen today in consultation on the regular medical floor. Currently sitting up in bed. Awake and alert in no acute distress. No worsening shortness of breath, cough or congestion. Maintaining O2 saturations in the 90s on 2 L/min per nasal cannula. She is afebrile. Hemodynamically stable. Review of Systems REVIEW OF SYSTEMS: CONSTITUTIONAL: Denies any recent significant weight loss or weight gain. EYES: Denies change in vision. EARS, NOSE, MOUTH, THROAT: Positive for sinus congestion and sore throat. CARDIOVASCULAR: Denies chest pain, palpitations or syncopal episodes. RESPIRATORY: Positive for shortness of breath, cough, congestion no hemoptysis. GASTROINTESTINAL: Denies change in appetite, denies abdominal pain GENITOURINARY: Denies hematuria, denies infections. MUSKULOSKELETAL: Denies pain, denies swelling. INTEGUMENTARY: Denies rash, denies eczema. NEUROLOGICAL: Denies recent memory loss, no recent seizure activity. PSYCHIATRIC: Denies anxiety, denies depression. HEMATOLOGIC/LYMPHATIC: Denies anemia, denies enlarged lymph nodes. Past Medical History Past Medical History: Asthma, Hypertension History of Any Multi-Drug Resistant Organisms: None Reported Past Surgical History: Section Past Psychological History: No Psychological Hx Reported Smoking Status: Never smoker Past Alcohol Use History: None Reported Past Drug Use History: None Reported Medications and Allergies Home Medications Medication Instructions Recorded Confirmed Type Dextromethorphn/Acetaminoph/Cp 2 tab PO Q4HR PRN 06/25/25 06/25/25 History [Coricidin Hbp Flu Tablet] Fluticasone Propion/Salmeterol 1 puff INHALATION RT-BID 06/25/25 06/25/25 History [Advair 250-50 Diskus] Levalbuterol Nebulized [Xopenex 1.25 mg INHALATION Q12H 06/25/25 06/25/25 History Nebulized] Rivaroxaban [Xarelto] 20 mg PO DAILY 06/25/25 06/25/25 History lisinopriL [Zestril] 10 mg PO DAILY 06/25/25 06/25/25 History Allergies Allergy/AdvReac Type Severity Reaction Status Date / Time cashew nut Allergy Anaphylaxis Verified 06/25/25 09:29 cheese Allergy Unknown Verified 06/25/25 09:29 melon Allergy Anaphylaxis Verified 06/25/25 09:29 shellfish derived [Shrimp] Allergy Anaphylaxis Verified 06/25/25 09:29 tree nut Allergy Anaphylaxis Verified 06/25/25 09:29 wheat Allergy Anaphylaxis Verified 06/25/25 09:29 Physical Exam Vitals: Vital Signs Temp Pulse Pulse Pulse Resp BP BP 06/26/25 10:09 96 06/26/25 08:32 88 06/26/25 08:17 06/26/25 08:14 92 06/26/25 07:00 97.7 F 103 H 19 143/86 06/26/25 00:34 98.2 F 92 18 135/84 06/25/25 20:00 92 20 06/25/25 19:06 98.1 F 120 H 18 144/86 06/25/25 18:57 106 H 06/25/25 18:47 107 H 06/25/25 16:09 06/25/25 16:08 88 06/25/25 15:59 87 06/25/25 15:00 99.3 F 92 20 149/89 06/25/25 12:00 97.9 F 124 H 19 163/98 06/25/25 11:50 99.1 F 120 H 18 166/97 06/25/25 11:44 120 H 18 170/93 06/25/25 11:16 119 H 18 169/99 06/25/25 11:00 118 H 18 177/93 Pulse Ox Pulse Ox 06/26/25 10:09 86 L 06/26/25 08:32 06/26/25 08:17 91 L 06/26/25 08:14 06/26/25 07:00 93 L 06/26/25 00:34 93 L 06/25/25 20:00 06/25/25 19:06 93 L 06/25/25 18:57 06/25/25 18:47 06/25/25 16:09 92 L 06/25/25 16:08 06/25/25 15:59 06/25/25 15:00 93 L 06/25/25 12:00 96 06/25/25 11:50 93 L 06/25/25 11:44 94 L 06/25/25 11:16 94 L 06/25/25 11:00 94 L Intake and Output 06/25/25 06/26/25 06/26/25 22:59 06:59 14:59 Other: # Voids 1 2 GENERAL EXAM: Alert, active, pleasant 54-year-old female, on 2 L nasal cannula, comfortable in no apparent distress. HEAD: Normocephalic. EYES: Normal reaction of pupils, equal size. NOSE: Clear with pink turbinates. THROAT: No erythema or exudates. NECK: No masses, no JVD. CHEST: No chest wall deformity. LUNGS: Equal air entry with no crackles, wheeze, rhonchi or dullness. CVS: S1 and S2 normal with no audible murmur, regular rhythm. ABDOMEN: No hepatosplenomegaly, normal bowel sounds, no guarding or rigidity. SPINE: No scoliosis or deformity SKIN: No rashes CENTRAL NERVOUS SYSTEM: No focal deficits, tone is normal in all 4 extremities. EXTREMITIES: There is no peripheral edema. No clubbing, no cyanosis. Peripheral pulses are intact. Results - Laboratory Findings CBC and BMP: 06/26/25 05:44 06/26/25 05:44 PT/INR, D-dimer PT 11.3 sec (10.0-12.5) 06/25/25 08:38 INR 1.0 (<1.2) 06/25/25 08:38 Abnormal lab findings: Abnormal Labs 06/25/25 06/25/25 06/26/25 07:42 07:42 05:44 WBC 10.01 H 11.82 H Immature Gran # 0.05 H Neutrophils # 7.97 H 10.79 H Lymphocytes # 0.85 L Monocytes # 0.11 L Eosinophils # 0.36 H 0 L Carbon Dioxide Anion Gap BUN/Creatinine Ratio Glucose 103 H Total Bilirubin 1.6 H AST 48 H Alkaline Phosphatase 140 H Total Protein 8.5 H 06/26/25 05:44 WBC Immature Gran # Neutrophils # Lymphocytes # Monocytes # Eosinophils # Carbon Dioxide 21.5 L Anion Gap 15.50 H BUN/Creatinine Ratio 23.62 H Glucose 131 H Total Bilirubin AST Alkaline Phosphatase Total Protein - Diagnostic Findings Chest x-ray: image reviewed Assessment and Plan Assessment: Acute exacerbation of mild intermittent asthma complicated by sinus congestion and purulent tracheobronchitis. Chest x-ray revealed no acute pulmonary process. Procalcitonin negative at 0.04. Viral screen negative History of mild intermittent chronic bronchial asthma maintained on Advair and Xopenex History of multiple food and environmental allergies Hypertension History of pulmonary embolism maintained on Xarelto Plan: The patient was seen and evaluated Chest x-ray, labs and medications reviewed Titrate down/off the FiO2 as tolerated Cleared for discharge from the pulmonary standpoint Complete a course of Augmentin Complete a Medrol Dosepak Continue her home Advair/Xopenex Anticoagulated with Xarelto Follow-up closely with her PCP I have personally seen and examined the patient, performed the documentation and the assessment and plan as written. Number of minutes spent on the visit: 20 Dictation was produced using [employer] dictation software. Please excuse any grammatical, word or spelling errors.
--- NOTE | 2025-06-27 04:35 | PN ---
PROGRESS NOTE DATE OF SERVICE: 06/26/2025 SUBJECTIVE: This 54-year-old woman, admitted with acute bronchial asthma, acute exacerbation, room air pulse ox 86%. The patient need home O2. OBJECTIVE: VITAL SIGNS: Pulse is 106, blood pressure 116/77, respirations 18. CHEST: Few scattered rhonchi and crackles. ABDOMEN: Soft. NERVOUS SYSTEM: Nonfocal. LABORATORY DATA: Reviewed. ASSESSMENT: 1. Acute bronchial asthma, acute exacerbation. 2. Hypoxia. 3. Acute purulent tracheobronchitis. 4. Upper respiratory infection. 5. Hypertension. 6. Tachycardia. 7. Elevated WBC. 8. Eosinophilia. 9. Elevated bilirubin. RECOMMENDATIONS AND DISCUSSION: I recommend to continue current management and symptomatic treatment. Continue with bronchodilators. Continue with steroids. Continue the rest of medications, arrange home O2. I would recommend to repeat labs in the morning. Closely follow with Pulmonary. Further recommendations to follow. Possible discharge in the next 24 hours. MMODL / IJN: [id number] /
[2025-06-27 08:05] LABS: Basophils # (A) 0.03 X 10*3/uL (0.00-0.10); Basophils % (A) 0.2 %; Eosinophils # (A) 0 X 10*3/uL (0.04-0.35); Eosinophils % (A) 0 %; HCT 39.5 % (37.2-46.3); HGB 12.6 g/dL (12.0-15.0); Immature Grans, Automated 0.50 %; Lymphocytes # (A) 0.76 X 10*3/uL (0.90-5.00); Lymphocytes % (A) 4.0 %; MCH 29.9 pg (27.0-32.0); MCHC 31.9 g/dL (32.0-37.0); MCV 93.6 FL (80.0-97.0); Monocytes # (A) 0.21 X 10*3/uL (0.20-1.00); Monocytes % (A) 1.1 %; NRBC Per 100 WBC 0 X 10*3/uL (0.00-0.01); Neutrophils # (A) 17.75 X 10*3/uL (1.80-7.70); Neutrophils % (A) 94.2 %; Platelet Count 341 X 10*3/uL (140-440); RBC 4.22 X 10*6/uL (4.10-5.20); RDW 14.7 % (11.5-14.5); WBC 18.85 X 10*3/uL (4.50-10.00)
[2025-06-27 08:38] LABS: Anion Gap 11.30 mmol/L (4.00-12.00); BUN/Creat Ratio 42.12 Ratio (12.00-20.00); Blood Urea Nitrogen 33.7 mg/dL (9.0-27.0); Calcium 9.3 mg/dL (8.7-10.3); Carbon Dioxide 22.7 mmol/L (21.6-31.8); Chloride 103 mmol/L (96-109); Glucose 126 mg/dL (70-110); Potassium 4.8 mmol/L (3.5-5.5); Sodium 137 mmol/L (135-145)
[2025-06-27] MEDS: predniSONE 20 MG TAB PO SCH (08:49)
--- NOTE | 2025-06-27 12:10 | P.PN ---
Subjective Progress Note Date: 06/27/25 This is a very pleasant 54-year-old female patient with a known history of hypertension, mild intermittent chronic bronchial asthma, pulmonary embolism anticoagulated with Xarelto. She presented here to the emergency room yesterday with a 1 day history of cold-like symptoms. She had cough congestion, sore throat and sinus drainage. Some shortness of breath feeling maybe her asthma had flared up due to her upper respiratory symptoms. No fever or chills. No nausea vomiting or diarrhea. No sick contacts. Chest x-ray revealed no acute pulmonary process. White count 10.0. Hemoglobin 13.5. Platelets 354. Sodium 142. Potassium 4.2. Bicarb 22. BUN 19. Creatinine 0.9. Glucose 131. Procalcitonin negative at 0.04. Viral screen negative for influenza A/B, RSV or COVID. She is seen today in consultation on the regular medical floor. Currently sitting up in bed. Awake and alert in no acute distress. No worsening shortness of breath, cough or congestion. Maintaining O2 saturations in the 90s on 2 L/min per nasal cannula. She is afebrile. Hemodynamically stable. The patient is seen today June 27, 2025 in follow-up on the regular medical floor. She is currently sitting up in bed. Awake and alert in no acute distress. She denies any worsening shortness of breath, cough or congestion. She is maintaining O2 saturations in the 90s on room air. White count 18.8. Hemoglobin 12.6. Platelets 341. Sodium 137. Potassium 4.8. Bicarb 23. BUN 34. Creatinine 0.8. Glucose 126. Procalcitonin was negative at 0.04. She is currently on ceftriaxone. Continued on DuoNeb ventilations, Symbicort, Solu- Medrol. Anticoagulated with Xarelto. Objective - Vital Signs Vital signs: Vital Signs Temp 97.8 F 06/27/25 06:54 Pulse 91 06/27/25 12:00 Resp 16 06/27/25 06:54 BP 129/80 06/27/25 06:54 Pulse Ox 96 06/27/25 08:56 FiO2 Intake & Output 06/26/25 06/27/25 06/27/25 18:59 06:59 18:59 Intake Total 240 Balance 240 Intake: Oral 240 Other: # Voids 3 2 - Exam GENERAL EXAM: Alert, active, pleasant 54-year-old female, on room air, comfortable in no apparent distress. HEAD: Normocephalic. EYES: Normal reaction of pupils, equal size. NOSE: Clear with pink turbinates. THROAT: No erythema or exudates. NECK: No masses, no JVD. CHEST: No chest wall deformity. LUNGS: Equal air entry with no crackles, wheeze, rhonchi or dullness. CVS: S1 and S2 normal with no audible murmur, regular rhythm. ABDOMEN: No hepatosplenomegaly, normal bowel sounds, no guarding or rigidity. SPINE: No scoliosis or deformity SKIN: No rashes CENTRAL NERVOUS SYSTEM: No focal deficits, tone is normal in all 4 extremities. EXTREMITIES: There is no peripheral edema. No clubbing, no cyanosis. Peripheral pulses are intact. - Labs CBC & Chem 7: 06/27/25 03:54 06/27/25 03:54 Labs: Abnormal Lab Results - Last 24 Hours (Table) 06/27/25 06/27/25 Range/Units 03:54 03:54 WBC 18.85 H (4.50-10.00) X 10*3/uL MCHC 31.9 L (32.0-37.0) g/dL RDW 14.7 H (11.5-14.5) % Immature Gran # 0.10 H (0.00-0.04) X 10*3/uL Neutrophils # 17.75 H (1.80-7.70) X 10*3/uL Lymphocytes # 0.76 L (0.90-5.00) X 10*3/uL Eosinophils # 0 L (0.04-0.35) X 10*3/uL BUN 33.7 H (9.0-27.0) mg/dL BUN/Creatinine Ratio 42.12 H (12.00-20.00) Ratio Glucose 126 H (70-110) mg/dL Microbiology - Last 24 Hours (Table) 06/25/25 07:42 Blood Culture - Preliminary Blood Assessment and Plan Assessment: Acute exacerbation of mild intermittent asthma complicated by sinus congestion and purulent tracheobronchitis. Chest x-ray revealed no acute pulmonary process. Procalcitonin negative at 0.04. Viral screen negative History of mild intermittent chronic bronchial asthma maintained on Advair and Xopenex History of multiple food and environmental allergies Hypertension History of pulmonary embolism maintained on Xarelto Plan: The patient was seen and evaluated Labs and medications reviewed Does not require home oxygen Procalcitonin negative Antibiotics discontinued Cleared for discharge Complete a prednisone taper Continue her home Advair/Xopenex Anticoagulated with Xarelto Follow-up closely with her PCP I have personally seen and examined the patient, performed the documentation and the assessment and plan as written. Number of minutes spent on the visit: 24 Dictation was produced using [employer] dictation software. Please excuse any grammatical, word or spelling errors.
[2025-06-27 15:24] VITALS: BP 110/73; PULSE 91; RESP 17; TEMP 98
== END 2025-06-27 16:53 | disposition home or self-care (01) ==
LOC: EC 06:54 → 6NMEDSUR 09:12
PROVIDERS: ADMIT Hospitalist; ATTEND Hospitalist
DX: J45.31 Mild persistent asthma with (acute) exacerbation (principal); J06.9 Acute upper respiratory infection, unspecified; J20.9 Acute bronchitis, unspecified; D72.10 Eosinophilia, unspecified; R09.02 Hypoxemia; R17 Unspecified jaundice; I10 Essential (primary) hypertension; Z79.01 Long term (current) use of anticoagulants; Z79.899 Other long term (current) drug therapy; Z86.711 Personal history of pulmonary embolism; Z79.52 Long term (current) use of systemic steroids
CPT/HCPCS: 96376 ×3; 96365; 96366; 96375; 99285; 36415; 94640 ×6; 94760 ×3; 93005; 80053; 80048 ×2; 83605; 83735; 85025 ×3; 85610; 85730; 87040; 84145; 87636; 71046; G0378 ×3; J0696 ×3; J7512; J2919 ×3